=== PATIENT | female | born 2000 | race Caucasian/White ===

== ENCOUNTER 2023-03-25 12:05 | Emergency (ER) | payer OTHER, SELFPAY ==
[2023-03-25 12:06] VITALS: BP 133/79; PULSE 88; RESP 18; TEMP 36.4; O2SAT 100; BMI 30.4
--- NOTE | 2023-03-25 12:23 | US_ITS ---
STUDY: FIRST TRIMESTER OBSTETRICAL ULTRASOUND REASON FOR EXAM: Female, 22 years old Bleeding with approximately 8 weeks LMP: Unknown. TECHNIQUE: Transvaginal TECHNICAL QUALITY: Adequate. PRIOR ULTRASOUND: None. FINDINGS: There is visualization of a single gestational sac in a normal intrauterine position. The mean sac diameter (MSD) measures 3.29 cm, indicating an estimated gestational age (EGA) of 8 weeks, 3 days. The gestational sac shape is within normal limits. There is a visualized yolk sac. The yolk sac measures 3.8 mm. The placenta is non-visualized. There is visualization of a live embryo. The crown-rump length (CRL) measures 1.81 cm, indicating an estimated gestational age (EGA) of 8 weeks, 1 days. There is demonstrated cardiac activity with a heart rate of 154 bpm. The estimated gestation age (EGA) by US is 8 weeks, 2 days. The estimated date of delivery (CRIS) by US is November 02, 2023. The uterus measures 9.3 x 7.6 x 6.2 cm. A tiny subchorionic hemorrhage is present in the mid uterine region measuring 4.1 mm see image #61/90 series #1. There is no demonstrated uterine fibroid. The cervix is closed. The right ovary measures 2.9 x 2.4 x 2.0 cm. There is no right ovarian cyst. There is no visualized right adnexal mass or complex lesion. The left ovary measures 2.2 x 1.6 x 1.8 cm. There is no left ovarian cyst. There is no visualized left adnexal mass or complex lesion. There is no fluid in the cul de sac. US/Transvaginal w/Preg US IMPRESSION: 1. Single IUP at 8 weeks and 2 days. 2. A tiny subchorionic hemorrhage is present in the mid uterine region measuring 4.1 mm see image #61/90 series #1. Electronically Signed: Tomas Patino MD at 14:57 EST ,
--- NOTE | 2023-03-25 12:24 | ED.VIS.FEGU ---
HPI HPI - Female History of Present Illness Chief Complaint: Vag Bld, Preg Informant: patient Narrative Narrative: Patient presents with some vaginal bleeding and cramping. Patient's last menstrual cycle was January 27. She is estimated about 8 weeks . She is G1, P0. She started some slight bleeding last night. It was initially bright red and now it is a little bit darker. It is much less than her normal menstrual cycle. She has some mild cramping more on the left side. None in the back. No urinary symptoms. She is eating drinking moving bowels normally. Only prior abdominal surgeries appendectomy years ago. She contacted her OB who referred her in here. PFSH PFSH Allergy/AdvReac Type Severity Reaction Status Date / Time No Known Allergies Allergy Verified 03/25/23 12:06 Social History Smoking Status: Never smoker ROS ROS ED Constitutional Constitutional ED: Denies chills or fever(s) Cardiovascular Cardiovascular: Denies chest pain, palpitations or racing heartbeat Respiratory/Chest Respiratory/Chest: Denies cough or dyspnea Gastrointestinal Gastrointestinal: Denies diarrhea, melena, nausea or vomiting Genitourinary Genitourinary ED: Reports other Details: See history of present illness. ; Denies dysuria Musculoskeletal Musculoskeletal: Denies myalgias Integumentary Denies rash Hematologic/Lymphatic Hematologic/Lymphatic: Denies easy bleeding or easy bruising Allergic/Immunologic Allergic/Immunologic ED: Denies urticaria EXAM Physical Exam Narrative Exam Narrative: CONSTITUTIONAL: Patient is nontoxic in appearance. The patient looks comfortable. HEENT: No notable trauma. Mucous membranes moist. EYES: No pallor. CARDIOVASCULAR: Regular rate. Regular rhythm. No notable murmur. No JVD. Not tachycardic. RESPIRATORY: No respiratory distress. Breathing is unlabored. No wheezes. GASTROINTESTINAL: Not distended. Bowel sounds are normal. No tenderness. No guarding. No rebound. No palpable mass. Overall benign abdomen. GENITOURINARY: No tenderness over the bladder. No CVA tenderness. When I press in the left lower quadrant/pelvis area she states that is where it is cramping. But pressing does not seem to cause any notable discomfort. MUSCULOSKELETAL: Atraumatic. No peripheral edema. No cord. No tenderness along the deep venous system. No asymmetry. NEUROLOGICAL: Patient is alert and appropriate. No focal deficit noted. SKIN: No noted rashes. No diaphoresis. No pallor. PSYCHIATRIC: Patient is calm. Mood is appropriate. Const Vital Signs: 03/25/23 12:06 Temperature 97.5 F L Temperature Source Temporal Pulse Rate 88 Respiratory Rate 18 Blood Pressure 133/79 H Blood Pressure Mean 97 Pulse Ox 100 Oxygen Delivery Method Room Air MDM MDM MDM Narrative Medical decision making narrative: Patient CBC is normal. Patient's blood type is a positive and she does not need RhoGAM. Patient's serum quantitative beta-hCG is 55,971. Patient's urinalysis is normal no sign of infection. Patient's transvaginal ultrasound shows single live IUP at 8 weeks 2 days with a small subchorionic bleed of 4.1 mm. I think patient is appropriate to go home. She will follow-up with her [employer] physician. I explained that the bleeding is not a reassuring sign in early but with a small subchorionic bleed it is still possible to carry on a normal . If she has worsening bleeding, pains, lightheadedness or other concerns she should return. Lab Data Attestation: I reviewed the patient's lab results. Labs: Laboratory Results - last 24 hr 03/25/23 03/25/23 12:40 13:06 WBC 10.2 RBC 4.97 Hgb 14.5 Hct 42.0 MCV 84.5 MCH 29.2 MCHC 34.5 RDW Std Deviation 35.8 RDW Coeff of Tommy 11.8 Plt Count 292 MPV 8.9 Immature Gran % (Auto) 0.300 Neut % (Auto) 75.1 H Lymph % (Auto) 17.4 L [place] % (Auto) 5.6 Eos % (Auto) 1.0 Baso % (Auto) 0.6 Absolute Neuts (auto) 7.7 Absolute Lymphs (auto) 1.77 Nucleated RBC % 0 HCG, Quant 64483 H Serum , Qual Cancelled Urine Color Yellow Urine Clarity Sl. Cloudy Urine pH 6.5 Ur Specific [place] 1.015 Urine Protein 15 H Urine Glucose (UA) Normal Urine Ketones Negative Urine Occult Blood 25 H Urine Nitrite Negative Urine Bilirubin Negative Urine Urobilinogen Normal Ur Leukocyte Esterase Negative Urine RBC 0-5 SEEN Urine WBC 0 SEEN Ur Squamous Epith Cells 0-5 SEEN Urine Bacteria RARE Urine Mucus RARE Blood Type A POSITIVE Radiography Diagnostic Testing: Clinical Impression(s) from Imaging Studies Obstetrics Ultrasound 03/25/23 12:23 IMPRESSION: 1. Single IUP at 8 weeks and 2 days. 2. A tiny subchorionic hemorrhage is present in the mid uterine region measuring 4.1 mm see image #61/90 series #1. Electronically Signed: Tomas Patino MD at 14:57 EST Reading Location ID and State: [facility] / [place] , Service support , Discharge Plan Triage Chief Complaint: Vag Bld, Preg ED Provider: Gilson Collins Dx/Rx/DC Orders Clinical Impression: Vaginal bleeding, First trimester bleeding Instructions: Bleeding During Early Primary Care Provider: Deejay Jain Referrals: Deejay Jain MD [Primary Care Provider] - Luciana Sahu MD [Med Staff - Active Staff] - 2 Days Disposition Disposition: Home, Self Care
[2023-03-25 12:51] LABS: Absolute Lymphocyte Count 1.77 X10^3/uL (0.83-4.51); Absolute Neutrophil Count 7.7 X10^3/uL (2.0-7.7); Basophil# 0.06 X10^3/uL; Basophil% 0.6 % (0-1); Hemoglobin 14.5 g/dL (12.0-15.0); Lymphocyte # 1.77 X10^3/ul (0.83-4.51); Lymphocyte % 17.4 % (19-41); Mean Corp Hgb Conc 34.5 g/dL (32-36); Mean Corpuscular Hgb 29.2 pg (27.0-32.0); Mean Corpuscular Volume 84.5 fL (81-99); Mean Platelet Vol. 8.9 fl (6.2-12.0); Monocyte# 0.57 X10^3/uL; Monocyte% 5.6 % (0-10); NRBC Flagged by Analyzer 0 % (0-5); Neutrophil # 7.65 X10^3/uL (2.7-7.7); Neutrophil % 75.1 % (47-70); Platelet Count 292 K/mm3 (150-450); RBC Distribution Width CV 11.8 % (11.6-14.6); RBC Distribution Width SD 35.8 fl (35.1-43.9); Red Blood Count 4.97 M/mm3 (4.2-5.4); White Blood Count 10.2 K/mm3 (4.4-11.0)
[2023-03-25 13:16] LABS: White Blood Cells 0 SEEN /hpf (0-5)
[2023-03-25 13:27] LABS: Color, Urine Yellow (Yellow); Glucose, Dipstick Normal (Normal); Ketone-Dipstick Negative (Negative); Leukocyte Esterase-Dipstick Negative /ul (Negative); Nitrite-Dipstick Negative (Negative); Occult Blood-Urine 25 /ul (Negative); Protein-Dipstick 15 mg/dl (Negative); Specific Gravity, Urine 1.015 (1.002-1.030); Urine Bilirubin Dipstick Negative (Negative); Urine Clarity Sl. Cloudy (Clear); Urine Urobilinogen Normal (Normal); Urine pH 6.5 (5.0 - 8.0)
[2023-03-25 13:37] LABS: Bacteria RARE /hpf (None Seen); Mucous, Urine RARE /hpf (<or=2+); Red Blood Cells-Urine 0-5 SEEN /hpf (0-5); Squamous Epithelial Cells - UA 0-5 SEEN /hpf (5-10)
[2023-03-25 13:39] LABS: hCG Titer Quant., Serum 55971 mIU/mL (1-3)
[2023-03-25 15:33] VITALS: BP 126/85; PULSE 80; RESP 16; O2SAT 98
== END 2023-03-25 15:41 | disposition home or self-care (01) ==
PROVIDERS: Emergency Provider Emergency Medicine; PCP Family Medicine; Visit Provider Emergency Medicine
DX: O20.8 Other hemorrhage in early pregnancy (principal); R10.2 Pelvic and perineal pain; Z3A.08 8 weeks gestation of pregnancy; O99.891 Other specified diseases and conditions complicating pregnancy
CPT/HCPCS: 76817; 81001; 84702; 85025; 86900; 86901; 99283; A4216

== ENCOUNTER → 2023-04-02 | Outpatient (CLI) | payer OTHER, SELFPAY ==
--- OUTSIDE RECORDS SUMMARY | 2023-04-02 18:22 | XMS RPT_ITS | CCD ---
Author Name Unknown Address [address] [place] [address] Organization [facility] Care Team Providers Care Director Of Product Marketing Name Role Phone Maria Luz Ledezma Unavailable Unavailable Unavailable Maria Luz Ledezma Unavailable Iban [place] Unavailable Jerman Gaby L Unavailable [facility] Unavailable Arjun Ji Unavailable Marky Copeland Unavailable [facility] Provide r [facility] Provide r OSCAR KOENIG Referring Unavailable OSCAR KOENIG Attending Unavailable [facility] Unavaila Armin Meier Unavailable Unavailable Razo, Lucy Attending Unavailable Razo, Lucy Referring Unavailable [facility] Unavailable [facility] Unavailable Rockwall, Dr. New Hardin Attending Unavailabl e Rockwall, Dr. [place] Referring Unavailabl e [facility] Unavailable [place]wall, Dr. [place] Attending Unavailabl e Waldo, Dr. [place] Referring UnavailMD SAIRA Lara Attending MD SAIRA Mtz Referring Unava ilable [facility] Unavailable Kamenik, Ms. Armin Su Attending Chelitavai jose [facility] Unav Siara Fernando MD Primary Care Provider SAIRA HERNANDEZ Primary Care Unavaila ble GARCIA, JAGPRIT PRUITT Attending SAIRA Colón Primary Care Unavaila WENDY Peter Admitting WENDY Rossi Referring Unavailable SAIRA HERNANDEZ Primary Care Unavaila WENDY Peter Attending Unavailable SAIRA HERNANDEZ Primary Care Unavaila WENDY Peter Attending Unavailable GABY BARKLEY Primary Care Unavaila LAURA Talavera Attending Unavailable Medications Current Medications Medication Drug Class(es) Dates Sig (Normalized) Sig (Original) azithromycin 250 mg oral tablet (1 source) Macrolide Antimicrobial Start: 03-31-2022 take 2 tablets by mouth once, then take 1 tablet by mouth once daily azithromycin 250 mg oral tablet ; Take 2 tabs (500mg) x 1 days, then 1 tab (250mg) once daily x 4 days Quantity: 6 Refills: 0 Ordered: 31-Mar-2022 Armin Morales Start: 31-Mar-2022 Generic Substitution Allowed Comments: Do not take dairy products, antacids, or iron preparations within one hour of this medication.Finish all this medication unless otherwise directed by prescriber. Completed/Discontinued Medications Medication Drug Class(es) Dates Sig (Normalized) Sig (Original) 12 hr buPROPion hydrochloride 150 mg extended release oral tablet (2 sources) Aminoketone Start: 10-20-2021 take 1 tablet by mouth twice daily buPROPion HCl ER (SR) 150 MG Oral Tablet Extended Release 12 Hour TAKE 1 TABLET TWICE DAILY. Quantity: 60 Refills: 2 Ordered: 20-Oct-2021 Saira Hernandez MD Start : 20-Oct-2021 Active hydrocortisone acetate 25 mg rectal suppository (5 sources) Corticosteroid Start: 04-07-2021 Anusol-HC 25 MG Rectal Suppository INSERT 1 SUPPOSITORY RECTALLY 2 TIMES DAILY. Quantity: 14 Refills: 0 Ordered: 07-Apr-2021 Gaby Mancia Start : 07-Apr-2021 Active hydrocortisone acetate 10 mg/ml / pramoxine hydrochloride 10 mg/ml rectal foam (3 sources) Corticosteroid Start: 06-11-2021 Proctofoam HC 1-1 % External Foam APPLY RECTALLY ONCE DAILY AT BEDTIME Quantity: 10 Refills: 2 Ordered: 11-Jun-2021 Osmany Penny DO Start : 11-Jun-2021 Active Problems Active Problems Problem Classification Problem Date Documented Date Episodic/Chronic Abdominal pain (2 sources) Indigestion; Translations: [Dyspepsia and other specified disorders of function of stomach] Episodic Anal and rectal conditions (6 sources) Disorder of rectum; Translations: [Anal fissure] Episodic Anxiety disorders (3 sources) Anxiety; Translations: [Anxiety state, unspecified] Onset: 11-18-2022 11-18-2022 Chronic Cardiac dysrhythmias (2 sources) Cardiac arrhythmia; Translations: [Cardiac dysrhythmia, unspecified] Onset: 05-26-2021 05-26-2021 Chronic Contraceptive and procreative management (1 source) Subcutaneous contraceptive implant present; Translations: [Presence of subdermal contraceptive implant] Episodic Past or Other Problems Problem Classification Problem Date Documented Da te Episodic/Chronic Malaise and fatigue (1 source) Other malaise; Translations: [Other malaise] Onset: 03-31-2022 Episodic Other upper respiratory infections (1 source) Acute upper respiratory infection, unspecified; Translations: [Acute upper respiratory infection, unspecified] Onset: 03-31-2022 Episodic Unclassified (11 sources) Finding of menstrual bleeding; Translations: [Menstruation] Results Test Name Value Interpretation Reference Range Facil ity Vital Signs Date Time Vital Sign Value Performing Clinician Facility 11-04-2022 09:24-0400 Body height 167.6 cm Wendy Lao ENGINEER TECHNICIAN Work Phone: [facility] 11-04-2022 09:24-0400 Body mass index (BMI) [Ratio] 27.44 kg/m2 Wendy Lao ENGINEER TECHNICIAN Work Phone: [facility] 11-04-2022 09:24-0400 Body weight 77.11 kg Wendy Lao ENGINEER TECHNICIAN Work Phone: [facility] 03-31-2022 15:23-0500 Body height 168 cm Gaby Barkley Other Phone: [facility] 03-31-2022 15:23-0500 Body temperature 97.7 [degF] Gaby Barkley Other Phone: [facility] 03-31-2022 15:23-0500 Diastolic blood pressure 76 mm[Hg] Gaby Barkley Other Phone: [facility] 03-31-2022 15:23-0500 Heart rate 93 /min Gaby Barkley Other Phone: [facility] 03-31-2022 15:23-0500 Respiratory rate 16 /min Gaby Barkley Other Phone: [facility] 03-31-2022 15:23-0500 SaO2% (BldA) [Mass fraction] 97 % Gaby Barkley Other Phone: [facility] 03-31-2022 15:23-0500 Systolic blood pressure 106 mm[Hg] Gaby Barkley Other Phone: [facility] 10-20-2021 10:16-0400 Body height 167.64 cm Gaby Barkley Work Phone: [facility] Work Phone: 10-20-2021 10:16-0400 Body mass index (BMI) [Ratio] 27.96 kg/m2 Gaby Dhillon [employer] Work Phone: [facility] Work Phone: 10-20-2021 10:16-0400 Body surface area Derived from formula 1.88 m2 Gaby Barkley Work Phone: [facility] Work Phone: 10-20-2021 10:16-0400 Body weight 78.59 kg Gaby Barkley Work Phone: [facility] Work Phone: 10-20-2021 10:16-0400 Diastolic blood pressure 80 mm[Hg] Gaby Dhillon [employer] Work Phone: [facility] Work Phone: 10-20-2021 10:16-0400 Heart rate 104 /min Gaby Dhillon [employer] Work Phone: [facility] Work Phone: 10-20-2021 10:16-0400 SaO2% (BldA) [Mass fraction] 98 % Gaby Barkley Work Phone: [facility] Work Phone: 10-20-2021 10:16-0400 Systolic blood pressure 110 mm[Hg] Gaby Barkley Work Phone: [facility] Work Phone: 10-06-2021 10:56-0400 Body height 167.64 cm Gaby Dhillon [employer] Work Phone: [employer] Work Phone: 10-06-2021 10:56-0400 Body mass index (BMI) [Ratio] 27.76 kg/m2 Gaby Barkley Work Phone: [facility] Work Phone: 10-06-2021 10:56-0400 Body surface area Derived from formula 1.88 m2 Gaby Barkley Work Phone: [facility] Work Phone: 10-06-2021 10:56-0400 Body weight 78.02 kg Gaby Barkley Work Phone: [facility] Work Phone: 10-06-2021 10:56-0400 Diastolic blood pressure 70 mm[Hg] Gaby Dhillon [employer] Work Phone: [facility] Work Phone: 10-06-2021 10:56-0400 Systolic blood pressure 110 mm[Hg] Gaby Dhillon [employer] Work Phone: [facility] Work Phone: 06-24-2021 14:23-0400 Body height 167.6 cm Oscar Koenig MD Work Phone: [facility] 06-24-2021 14:23-0400 Body mass index (BMI) [Ratio] 27.44 kg/m2 Oscar Koenig MD Work Phone: [facility] 06-24-2021 14:23-0400 Body weight 77.11 kg Oscar Koenig MD Work Phone: [facility] 06-24-2021 14:23-0400 Diastolic blood pressure 61 mm[Hg] Oscar Koenig MD Work Phone: [facility] 06-24-2021 14:23-0400 Heart rate 84 /min Oscar Koenig MD Work Phone: [facility] 06-24-2021 14:23-0400 SaO2% (BldA) [Mass fraction] 96 % Oscar Koenig MD Work Phone: [facility] 06-24-2021 14:23-0400 Systolic blood pressure 119 mm[Hg] Oscar Koenig MD Work Phone: [facility] 06-09-2021 09:18-0400 Body height 167.64 cm Gaby Barkley Work Phone: [facility] Work Phone: 06-09-2021 09:18-0400 Body mass index (BMI) [Ratio] 27.44 kg/m2 Gaby Barkley Work Phone: [facility] Work Phone: 06-09-2021 09:18-0400 Body surface area Derived from formula 1.87 m2 Gaby Barkley Work Phone: [facility] Work Phone: 06-09-2021 09:18-0400 Body weight 77.11 kg Gaby Barkley Work Phone: [facility] Work Phone: 06-09-2021 09:18-0400 Diastolic blood pressure 70 mm[Hg] Gaby Dhillon [employer] Work Phone: [facility] Work Phone: 06-09-2021 09:18-0400 Systolic blood pressure 110 mm[Hg] Gaby Dhillon Wood Work Phone: [facility] Work Phone: 05-26-2021 15:43-0400 Diastolic blood pressure 72 mm[Hg] Gaby Wood Other Phone: [facility] 05-26-2021 15:43-0400 Heart rate 76 /min Gaby Wood Other Phone: [facility] 05-26-2021 15:43-0400 Respiratory rate 15 /min Gaby Wood Other Phone: [facility] 05-26-2021 15:43-0400 SaO2% (BldA) [Mass fraction] 98 % Gaby Wood Other Phone: [facility] 05-26-2021 15:43-0400 Systolic blood pressure 114 mm[Hg] Gaby Wood Other Phone: [facility] 05-26-2021 13:00-0400 Body temperature 98.6 [degF] Gaby Wood Other Phone: [facility] 05-26-2021 08:51-0400 Body height 167.5 cm Gaby Wood Other Phone: [facility] 05-26-2021 08:51-0400 Body weight 72.7 kg Gaby Wood Other Phone: [facility] 04-07-2021 08:18-0500 Body height 167.64 cm Gaby Jacquie Wood Work Phone: [facility] Work Phone: 04-07-2021 08:18-0500 Body mass index (BMI) [Ratio] 27.44 kg/m2 Gaby L Wood Work Phone: [facility] Work Phone: 04-07-2021 08:18-0500 Body surface area Derived from formula 1.87 m2 Gaby Barkley Work Phone: [facility] Work Phone: 04-07-2021 08:18-0500 Body temperature 96.9 [degF] Gaby Barkley Work Phone: [facility] Work Phone: 04-07-2021 08:18-0500 Body weight 77.11 kg Gaby Barkley Work Phone: [facility] Work Phone: 04-07-2021 08:18-0500 Diastolic blood pressure 66 mm[Hg] Gaby Barkley Work Phone: [facility] Work Phone: 04-07-2021 08:18-0500 Heart rate 86 /min Gaby Barkley Work Phone: [facility] Work Phone: 04-07-2021 08:18-0500 SaO2% (BldA) [Mass fraction] 97 % Gaby Barkley Work Phone: [facility] Work Phone: 04-07-2021 08:18-0500 Systolic blood pressure 110 mm[Hg] Gaby Barkley Work Phone: [facility] Work Phone: 12-01-2020 06:44-0400 Body height 167.6 cm Maria Luz Brisa Other Phone: [facility] 12-01-2020 06:44-0400 Body temperature 97.16 [degF] Maria Luz Perryrdle Other Phone: [facility] 12-01-2020 06:44-0400 Body weight 74 kg Maria Luzgogo Perryrdle Other Phone: [facility] 12-01-2020 06:44-0400 Diastolic blood pressure 95 mm[Hg] Maria Luz Brisa Other Phone: [facility] 12-01-2020 06:44-0400 Heart rate 70 /min Maria Luz Brisa Other Phone: [facility] 12-01-2020 06:44-0400 Respiratory rate 16 /min Maria Luz Brisa Other Phone: [facility] 12-01-2020 06:44-0400 SaO2% (BldA) [Mass fraction] 98 % Maria Luz Brisa Other Phone: [facility] 12-01-2020 06:44-0400 Systolic blood pressure 140 mm[Hg] Maria Luz Brisa Other Phone: [facility] 09-03-2020 13:30-0400 Body height 167.64 cm Maria Luz L Brisa Work Phone: [facility] [employer] Work Phone: 09-03-2020 13:30-0400 Body mass index (BMI) [Ratio] 24.41 kg/m2 Maria Luz L Brisa Work Phone: [employer] Work Phone: 09-03-2020 13:30-0400 Body surface area Derived from formula 1.78 m2 Maria Luz L Brisa Work Phone: [employer] Work Phone: 09-03-2020 13:30-0400 Body temperature 98 [degF] Maria Luz L Brisa Work Phone: [employer] Work Phone: 09-03-2020 13:30-0400 Body weight 68.6 kg Maria Luz L Brisa Work Phone: [employer] Work Phone: 09-03-2020 13:30-0400 Diastolic blood pressure 62 mm[Hg] Maria Luz Ledezma Work Phone: [employer] Work Phone: 09-03-2020 13:30-0400 Systolic blood pressure 110 mm[Hg] Maria Luz Ledezma Work Phone: [place] [address] [employer] Work Phone: Encounters Encounter Date Encounter Type Care Provider Facility Start: 11-17-2022 End: 11-17-2022 ambulatory [facility] Start: 11-17-2022 End: 11-17-2022 Office outpatient visit 10 minutes Wendy Lao CNP Work Phone: [facility] Procedures Date Procedure Procedure Detail Performing Clinician Start: 06-24-2021 Ecg routine ecg w/le ast 12 lds w/i&r Oscar Koenig MD Work Phone: Start: 05-26-2021 Echocardiography Jd ia Jacquie Barkley Work Phone: Appendectomy Gaby Jacquie Barkley Work Phone: Nexplanon insertion Maria Luz Ledezma Work Phone: Plan of Treatment Date Care Activity Detail Author Start: 11-17-2022 End: 11-17-2022 Patient encounter procedure 11/17/2022 2:00 PM EDT Office Visit [facility] [address] [place] [address] Wendy Lao CNP [address] [place] [address] [facility] Start: 10-23-2022 Influenza vaccination Sequenti al Influenza Vaccine (#1) [facility] Start: 11-26-2021 End: 11-26-2021 Patient encounter procedure 11/26/2021 Office Visit Cardiology Oscar Koenig MD [address] [place] [id number] [facility] Start: 11-18-2021 EPV, Provider: Saira Hernandez, Status: Pen, Time: 2:40 PM EPV, Provider: Saira Hernandez, Status: Pen, Time: 2:40 PM [facility] Work Phone: Start: 10-20-2021 EPV, Provider: Saira Hernandez, Status: Pen, Time: 10:20 AM EPV, Provider: Saira Hernandez, Status: Pen, Time: 10:[address] Work Phone: Start: 09-03-2021 History and physical examination, annual for health maintenance Wellness Visit [facility] Start: 08-26-2021 COVID-19 Vaccine (3 - Booster for Pfizer series) COVID-19 Vaccine (3 - Booster for Pfizer series) [facility] Start: 08-01-2021 End: 08-01-2021 Patient encounter procedure 08/01/2021 Appointment Radiology Oscar Koenig MD [address] [place] [id number] [facility] Start: 07-30-2021 Tetanus vaccination Tetanus: Every 1 0yrs [facility] Start: 06-12-2021 NPV, Provider: Garcia El, Status: Pen, Time: 11:15 AM NPV, Provider: Garcia El, Status: Pen, Time: 11:15 AM [facility] [address] Work Phone: Start: 06-09-2021 NPV, Provider: Osmany Penny, Status: Pen, Time: 9:00 AM NPV, Provider: Osmany Penny, Status: Pen, Time: 9:00 AM [facility] Work Phone: Start: 06-09-2021 Patient encounter procedure [facility] Start: 05-26-2021 End: 05-27-2022 [facility] Immunizations Immunization Date Immunization Notes Care Provider Fa cility 03-29-2021 Pfizer-BioNTech COVID-19 Vacc 30 MCG/0.3ML Intramuscular Suspension Gaby Barkley Work Phone: [facility] Work Phone: Payers Date Payer Category Payer Unknown 2022 Unknown [id number] 2021 Worker's Compensation [id number] 2021 Worker's Compensation 22.128 [id number] 2021 Worker's Compensation [id number] 2019 Unknown [id number] 1999 Unknown [id number] 2.16. [id number] 1999 Unknown [id number] 2.16. [id number] 1999 Unknown [id number] 2.16. [id number] 1999 Unknown [id number] 2.16. [id number] 1999 Unknown [id number] 2.16. [id number] 1999 Unknown [id number] 2.16.8 [id number] 1999 Unknown [id number] 2.16. [id number] 1999 Unknown [id number] 2.16. [id number] 1999 Unknown [id number] 2.16. [id number] 1999 Unknown [id number] 2.16. [id number] 1999 Unknown [id number] 2.16. [id number] Unknown [id number] Social History Date Type Detail Facility Start: 06-24-2021 End: 11-17-2022 Non-smoker Non-smoker [facility] [address] [employer] Work Phone: Tobacco smoking consumption unknown [facility] Start: 06-24-2021 Tobacco smoking status NHIS Never smoked tobacco [facility] Start: 06-24-2021 Tobacco use and exposure Smokeless tobacco non-user [facility] Start: 06-24-2021 End: 11-18-2022 Alcohol intake Current drinker of alcohol (finding) [facility] Start: 2000 Sex Assigned At Not on file [facility] Start: 06-14-2021 End: 06-24-2021 Exposure to SARS-CoV-2 (event) Not sure [facility] Start: 08-01-2021 End: 11-17-2022 Tobacco use panel [facility] Start: 11-16-2022 Gender identity Identifies as female gender (finding) [facility] Start: 11-16-2022 Sexual orientation Heterosexual (finding) [facility] Functional Status Date Assessment Result Facility Functional observable [facility] Mental Status Date Assessment Result Facility 05-26-2021 Cognitive functions 27-May-19 2212:30 [facility] Clinical Notes 10-20-2020 to 11-18-2022 Wendy Lao CNP - 11/18/2022 4:45 PM Wendy Brower CNP - 11/04/2022 9:30 AM Carlos Izaguirre RN - 07/31/2021 4:27 PM Carlos Izaguirre RN - 07/29/2021 2:56 PM EDT Note Date & Type Note Facility 11-18-2022 History of Present illness Narrative [facility] [address] [facility] [address] [facility] [id number] Chief Complaint Patient presents with Right Knee - Follow-up Juancarlos Patino returns to the office today for follow-up on the right knee. I saw her about 2 weeks ago after she sustained an injury while playing [employer]. I did place her in a hinged range of motion knee brace and had her continue with OTC pain medications as needed. Today she is here without having to use the brace for ambulation. She states that she wore it for about a week and had also started some home physical therapy exercises which she states have helped significantly. She reports her swelling has resolved. She is able to ambulate without any type of assistance, normal gait pattern. She is not having to take any type of OTC pain medications. She also denies any instability of the knee. She even tried to go out and jog/run to see if this was something she was able to do prior to returning to work. She states that she had no problems with the run. The patient's past medical history, surgical history, social history, family history, medications and allergies were reviewed with the patient today and are available in the chart for further review. No Known Allergies Current Outpatient Medications: etonogestreL (NEXPLANON) 68 mg Impl subdermal implant, Inject under the skin once ., Disp: , Rfl: History reviewed. No pertinent past medical history. Past Surgical History: Procedure Laterality Date APPENDECTOMY 2012 TONSILLECTOMY 2019 Social History Socioeconomic History Marital status: Single Tobacco Use Smoking status: Never Smokeless tobacco: Never Vaping Use Vaping Use: Every day Substances: Nicotine Devices: Disposable Substance and Sexual Activity Alcohol use: Yes Alcohol/week: 2.0 standard drinks of alcohol Types: 2 Standard drinks or equivalent per week Drug use: Never ROS: Review of Systems Musculoskeletal: Negative. ORTHO: Right Knee Exam Right knee exam is normal. Imaging: No new imaging, reviewed from prior visit. Assessment/Plan: After exam we discussed continued treatment options for the knee. At this point time she is able to return to work without any restrictions. She can continue OTC pain medications as needed. I am more than happy to see this evelia young lady back as needed. documented in this encounter [facility] 11-04-2022 History of Present illness Narrative Juancarlos Patino 2000 CC: 22 y.o. is a she with right knee pain. HPI: Knee Pain: Patient presents to the office today with complaints of right knee pain. She states that a couple of days ago she was playing [employer], there was some uneven surface and she twisted her knee. She does report hearing an audible pop in the knee. She does report swelling in that right knee after the initial injury. She states that the swelling has improved somewhat. She did go to the emergency room, imaging was performed and they placed her in an immobilizer, instructed her to follow-up with orthopedics. She has been using OTC pain medications as needed. She has been trying to walk around without the immobilizer. She states that any pain she has is when she tries to do any type of twisting or rotation of the knee. She denies any instability of the knee with ambulation. PMH: No Known Allergies Current Outpatient Medications: etonogestreL (NEXPLANON) 68 mg Impl subdermal implant, Inject under the skin once ., Disp: , Rfl: ketorolac (TORADOL) 10 mg tablet, Take 1 (one) tablet (10 mg total) by mouth every 6 (six) hours as needed ., Disp: 20 tablet, Rfl: 0 No past medical history on file. Past Surgical History: Procedure Laterality Date APPENDECTOMY 2012 TONSILLECTOMY 2019 Social History Socioeconomic History Marital status: Single Tobacco Use Smoking status: Never Smokeless tobacco: Never Vaping Use Vaping Use: Every day Substances: Nicotine Devices: Disposable Substance and Sexual Activity Alcohol use: Yes Alcohol/week: 2.0 standard drinks of alcohol Types: 2 Standard drinks or equivalent per week Drug use: Never The patient's past medical history, surgical history, social history, family history, medications and allergies were reviewed with the patient today and are available in the chart for further review. ROS: Review of Systems Constitutional: Negative for activity change and fatigue. HENT: Negative for congestion, hearing loss and trouble swallowing. Eyes: Negative for visual disturbance. Respiratory: Negative for chest tightness and shortness of breath. Cardiovascular: Negative for chest pain and palpitations. Gastrointestinal: Negative for abdominal pain, diarrhea, nausea and vomiting. Endocrine: Negative for polydipsia, polyphagia and polyuria. Genitourinary: Negative for decreased urine volume, difficulty urinating and hematuria. Musculoskeletal: Positive for arthralgias, gait problem, joint swelling and myalgias. Skin: Negative for color change, rash and wound. Allergic/Immunologic: Negative for immunocompromised state. Neurological: Negative for dizziness, weakness, light-headedness and numbness. Hematological: Does not bruise/bleed easily. Psychiatric/Behavioral: Negative for confusion and sleep disturbance. The patient is not nervous/anxious. PE: Physical Exam Constitutional: Appearance: She is well-developed. HENT: Head: Normocephalic. Eyes: Pupils: Pupils are equal, round, and reactive to light. Cardiovascular: Rate and Rhythm: Normal rate and regular rhythm. Pulmonary: Effort: Pulmonary effort is normal. Breath sounds: Normal breath sounds. Abdominal: General: Bowel sounds are normal. Palpations: Abdomen is soft. Musculoskeletal: General: Swelling and tenderness present. Normal range of motion. Cervical back: Normal range of motion and neck supple. Right knee: Effusion present. Instability Tests: Medial Arie test positive. Lateral Arie test negative. Skin: General: Skin is warm and dry. Neurological: Mental Status: She is alert and oriented to person, place, and time. ORTHO: Right Knee Exam Tenderness The patient is experiencing tenderness in the MCL. Range of Motion Extension: -5 Flexion: 130 Tests Arie: Medial - positive Lateral - negative Varus: negative Valgus: positive Christal: Anterior - negative Drawer: Anterior - negative Posterior - negative Other Erythema: present Scars: absent Sensation: normal Pulse: present Swelling: mild Effusion: effusion present Imaging: Right knee: No acute fracture or dislocation. No osseous abnormality. Assessment/Plan: After examination and reviewing of the patient x-ray images we discussed treatment options for the right knee. She is getting in a month and really does not want to have to take a lot of time off of work. At this point in time we are going to place her in a different type of knee brace, hinged range of motion knee brace for additional support for the knee. She is to continue with OTC pain medications as needed. I want to see her back in 2 weeks for reevaluation. We did discuss the possibility of needing a MRI if there is no improvement in the next couple of weeks. Diagnosis: Problem List Items Addressed This Visit None Follow Up: No follow-ups on file. Wendy Lao CNP documented in this encounter [facility] 08-15-2022 Note Diagnoses/Problems Assessed control counseling (V25.09) (Z30.09) Provider Impressions 1) control counseling-reviewed all forms of control including short acting long-acting permanent. Patient like her Nexplanon replaced. Paperwork signed for insurance today. Plan remove and replace the next visit Chief Complaint PT IS HERE TODAY TO DISCUSS GETTING ANOTHER NEXPLANON. STATES HER NEXPLANON IS DUE TO COME OUT. HAS NO CONCERNS. LMP: 09/28/2021 History of Present [id number] presents for Nexplanon being overdue. Patient wanted removed today but not when discussing control she would like another one. Patient is no acute concerns Review of Systems Constitutional: No fevers, chills Eye:no vision changes Respiratory: no SOB Cardiovascular: no chest pain Breast: No lump/mass or discharge Gastrointestinal: No nausea, vomiting, diarrhea, constipation, abdominal pain Genitourinary:no dysuria Gynecology: See HPI Endocrine: No heat or cold intolerance Musculoskeletal: No decreased ROM Skin:No rash Neurologic: No numbness tingling Psychiatric: No anxiety, depression All other: all other systems reviewed and negative for complaint Active Problems Problems Breakthrough bleeding on Nexplanon (626.6,V45.59) (N92.1,Z97.5) Encounter for Papanicolaou smear of cervix (V76.2) (Z12.4) Other constipation (564.09) (K59.09) Ovarian cyst, complex (620.2) (N83.299) PRB (rectal bleeding) (569.3) (K62.5) Rectal fissure (565.0) (K60.2) Screening for breast cancer (V76.10) (Z12.39) Screening for STDs (sexually transmitted diseases) (V74.5) (Z11.3) Women's annual routine gynecological examination (V72.31) (Z01.419) Past Medical History Problems History of concussion (V15.52) (Z87.820) History of Menstruation Onset age 11 years History of Pap test, as part of routine gynecological examination (V76.2) (Z01.419) 09/03/2020; NIL Surgical History Problems History of Appendectomy History of Tonsillectomy Family History Mother Family history of diabetes mellitus (V18.0) (Z83.3) Father No pertinent family history Aunt Family history of malignant neoplasm of ovary (V16.41) (Z80.41) Maternal Social History Problems No alcohol use No illicit drug use Non-smoker (V49.89) (Z78.9) Sexually active Allergies Medication No Known Drug Allergies Recorded By: New Haas; 02/12/2020 2:02:25 PM Current Meds Medication NameInstruction MiraLax 17 GM Oral Packet Nexplanon 68 MG Subcutaneous Implant Vitals Vital Signs Recorded: 06Oct2021 10:56AM [id number] Latsxhqzn20 Height5 ft 6 in Lnedhh114 lb BMI Ctbjwggayg36.76 kg/m2 BSA Calculated1.88 [id number] Physical Exam General: None acute distress Eye: Intraocular movements are intact HEENT: Normocephalic Cardiovascular: Regular rate Respiratory: Respirations are nonlabored Gastrointestinal: Nondistended Musculoskeletal: Normal range of motion Neurologic: Alert and oriented x3 Psychiatric: Cooperative appropriate mood and affect. Signatures Electronically signed by : New Haas DO; Oct 06 2021 11:08AM EST (Author) [facility] 07-31-2021 History of Present illness Narrative Patient is scheduled for a cardiac MRI tomorrow morning (08/01) at 7:30 am to further evaluate a right atrial mass. Trying to determine eustachian valve vs. Myxoma, vs thrombus. Patient is a workers comp claim who was referred to our clinic for cardiac clearance after exposure to a fetanyl overdose while at work. Atrial mass was incidentally found while on ECHO while at [facility] at initial encounter. Issue is, unsure whether bureau of workers comp ([employer]) is going to cover cardiac MRI or not since they are unsure is atrial mass is related to fetanyl exposure or if mass was present prior to fetanyl exposure. Spoke to patient in reference to coverage and unsure whether MRI will be covered or not. Cardiac MRI could range ~$3,000 to $5,000. Patient verbalized understanding. Per patient, she would like to proceed with cardiac MRI testing, and will personally submit all necessary paperwork and bills to [employer] if needed. Will keep MRI as scheduled tomorrow, 08/01/21 at 7:30 AM. documented in this encounter [facility] 07-29-2021 History of Present illness Narrative [facility] C9 form faxed to [facility] [phone] for cardiac MRI scheduled for 08/01 documented in this encounter [facility] 06-24-2021 History of Present illness Narrative Cardiology Clinic Visit Heart & Vascular [facility] 06/24/2021 Oscar Koenig MD [address] [place] [id number] Patient: Juancarlos Patino Date of : 2000 (21 y.o.) Referring Provider: System, Provider Not In PCP: Gaby Barkley, SHAHBAZ Assessment & Plan Juancarlos Patino is a 21 y.o. woman with no significant past medical history who works in the [employer] and presents to clinic for evaluation of a right atrial mass. Right atrial mass -personally reviewed her echocardiogram images from [facility]. There appears to be a right atrial mass on the free wall of the atrium. Does not appear to be a myxoma or thrombus. Another possibility may be artifact. Prominent eustachian valve is a possibility however structure is larger than most typical prominent eustachian valves. We discussed further imaging including a cardiac MRI which she was agreeable to. Her echocardiogram otherwise revealed normal systolic function with no hemodynamically significant valve disease. The patient can return back to work however prior to her MRI. Chest pain - atypical in nature. The patient does have a strong family history of coronary artery disease and is interested in screening for coronary disease. She is interested in the calcium score which we have ordered and she will completed at per her preference. Return in about 4 months (around 10/25/2021). Oscar Koenig MD [facility] Non-Invasive Cardiology [facility] Heart and Vascular Chief Complaint: Establish Care (Cardiac clearance for work/c/o left arm tingling sometimes) Subjective Juancarlos Patino is a 21 y.o. woman with no significant past medical history who works in the [employer] and presents to clinic for evaluation of a right atrial mass. 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 EMS was called to the senior care and the patient was taken to the hospital. In route she was given Narcan. She was initially alert in the ED but soon became unconscious. She was then given another round of Narcan and given Ativan for seizure-like activity. She was admitted to the ICU for observation monitoring. She did undergo an echocardiogram which revealed normal systolic function. However there was a mobile echodensity in the right atrium possibly a prominent eustachian valve versus thrombus versus mass. She was referred to clinic for further evaluation. She reports that since this episode she does have episodes of chest pain which are sharp in nature. These episodes can occur with activity and exertion and she does have some radiation to her left arm. She reports that at times her left arm feels numb or can feel heavy with these episodes. She however can have these episodes while she is just sitting and resting. They last for few minutes at a time. She denies feeling short of breath. She denies lower extremity swelling, PND and orthopnea. She denies palpitations. She denies feeling lightheaded or dizzy. She denies any episodes syncope. She denies any prior cardiac history including CO, PCI, heart failure or valve issues. She denies prior history of DVT or PE. The patient does have a family history of early heart disease. Her maternal grandfather had an CO in his 40s. There were multiple family members who have had MIs in their 40s. Review of Systems: Constitution: Negative. HENT: Negative. Cardiovascular: As above. Respiratory: As above. Endocrine: Negative. Skin: Negative. Musculoskeletal: Negative. Gastrointestinal: Negative. Genitourinary: Negative. Neurological: Negative. Psychiatric/Behavioral: Negative. History reviewed. No pertinent past medical history. Past Surgical History: Procedure Laterality Date APPENDECTOMY 2012 TONSILLECTOMY 2019 Family History Problem Relation Age of Onset Mitral valve prolapse Mother No Known Problems Father Stroke Maternal Grandmother Heart attack Maternal Grandfather Social History Tobacco Use Smoking Status Never Smoker Smokeless Tobacco Never Used Allergies: Patient has no known allergies. HOME Medications: Current Outpatient Medications on File Prior to Visit Medication Sig etonogestreL (NEXPLANON) 68 mg Impl subdermal implant Inject under the skin once . No current facility-administered medications on file prior to visit. Physical Examination: BP 119/61 (BP Location: Right arm) Pulse 84 Ht 5' 6 Wt 77.1 kg (170 lb) SpO2 96% BMI 27.44 kg/m Constitutional: Appears well-developed and well-nourished. No distress. HENT: Head: Normocephalic and atraumatic. Eyes: Conjunctivae and EOM are normal. No scleral icterus. Neck: Normal range of motion. Cardiovascular: Normal rate and regular rhythm. Exam reveals no gallop and no friction rub. No murmur heard. No JVP elevation. No LE edema. Pulmonary/Chest: Effort normal and breath sounds normal. No respiratory distress. No wheezes. No rales. Abdominal: Soft. Bowel sounds are normal. There is no abdominal tenderness. Musculoskeletal: Normal range of motion. Neurological: AOx3, moving all ext. Skin: Skin is warm and dry. No rash noted. Psychiatric: Normal mood and affect. Cardiovascular Studies: 06/24/21 ECG Sinus rhythm RSR' Labs: No results found for: GLUCOSE, CALCIUM, NA, K, CL, BUN, CREATININE No results found for: WBC, HGB, HCT, MCV, EXTMCV, PLT, RBC No results found for: CHOL, LDLCALC, LDLDIRECT, TRIG, HDL documented in this encounter [facility] 06-24-2021 Instructions Farnaz Izaguirre RN - 06/24/2021 2:16 PM EDT How to contact your Care Team: Provider: Oscar Koenig MD Nurse: Farnaz Izaguirre RN In case of an emergency please call 911. REFILLS: When in need for refills please call your care team or the office at [phone]. Please include medication name, pharmacy name, and specify 30-day or 90-day supply. Please check with your pharmacy within 24 hours of request for your refill. You must follow up as directed to continue current refills. Thank you documented in this encounter [facility] 05-26-2021 Hospital Discharge instructions Follow Up Appointment 1:Physician/Dept/Service: Radha Villegas for Referral: Hospital Follow-upCall to Schedule in: 1 weekScheduled Date/Time: 09-Jun-2021 09:00Location: [address], [place] [address] Number: [phone]: Please keep already scheuduled appointment for your follow-up appointment [facility] 11-09-2020 History of Present illness Narrative Juancarlos is a pleasant 21-year-old female was recently hospitalized for accidental fentanyl overdose, she was exposed to fentanyl powder 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 She believes she may have aspirated the chemical and became unresponsive required 7 doses of Narcan hospital stay for recovery.She is seen today because of persistent constipation constipation began several months ago, she had been straining to have a bowel movement would often go 5 to 7 days without a bowel movement. She was recently started on MiraLAX which she is taking every other day which is helping improve her bowel function.Has known history of ovarian cyst she recently was put on oral contraceptives which made her feel more sick and is now on long-acting progesterone control.She admits the bleeding is bright red almost dripping from her rectum after bowel movement and the pain is excruciating to the point where she does not want to move her bowels. She denies any history of anemia. [facility] [address] Work Phone: 10-20-2020 History of Present illness Narrative using some nicotine in vaping, 5% nicotine, has been using for the past year, has tried cold turkey and changing routine, no help, only able to quit for a couple of days, has HAs, having a lot of anxietyno panic, + anxious, hard to sleep at night, worry a lot about things, always been a little anxious and nervouspain in epigastrium, some blood in stool, seen GI, + burping and belching/refluxing, no dysphagiausing ibuprofen 4 a day on average [facility] Work Phone: Evaluation note Musculoskeletal: Mov es extremities without difficultyGastrointestinal: Soft, nontender, nondistended, + BSCardiovascular: S1, S2, regular rate and rhythm, telemetry with sinus rhythmRespiratory/Thorax: Respirations even and unlabored at rest, clear to auscultation anteriorly and posteriorly, on room airHead/Neck: Normocephalic, atraumaticENMT: Mucous membranes moistEyes: EOMI, clear scleraSkin: Warm and dryNeurological: Sleeping, drowsy, oriented t3Bhezndzkzgi: No edema, +2 pedal pulsesConstitutional: Well developed, very drowsy, oriented x3, no acute distress, cooperativePsychological: Drowsy [facility] Sprain of medial collateral ligament of right knee, initial encounter- Primary [facility]* Diagnosis Sprain of medial collateral ligament of right knee, initial encounter- Primary [facility] encounter [facility] of [facility] Pzudcmvbv30-pyuh-ihr G0 presents for annual exam. Patient safe at home denies abuse. Patient sexually activewithout concern. Patient notes she has a Nexplanon would like to discuss that she had some irregular more painful cramps. Patient notes she is happy not having to take pills but likes the consistencyof pills better. Would like to remove and go on patch potentially. Patient believes she got the HPVvaccine. Patient does not do regular breast exams. Patient has no other acute concernsWst. [facility] Work Phone: History of Present illness NarrativeAlexis comes to office as a new patient. Has been having 2-3MO of irreg. painful rectal bleeding during & after BM's. BM's every 2-3D. BM's are described as hard and difficult to pass. + blood onoutside of stool. & w/ wiping. + drips blood following a BM. Wears liners as sometimes blood will soil undergarments. OTC: miralax & Mg tablets, as needed, w/ no improvement. + bloating. + nausea w/ some emesis. + early satiety. No previous bowel surgeries. + appy 10Y ago. + uncertain fxhx p aternal side, maternal is negative for CRC CA/ UC/chron's disease. + prep H- minimal help. + more anxious/stressed lately as has a high stress job. Diet- eats whatever . Will occasionally eats fiberone bars. No sx. No vaginal discharge.[facility] Work Phone: History of Present illness NarrativeAlexis comes to office as a new patient. Has been having 2-3MO of irreg. painful rectal bleeding during & after BM's. BM's every 2-3D. BM's are described as hard and difficult to pass. + blood onoutside of stool. & w/ wiping. + drips blood following a BM. Wears liners as sometimes blood will soil undergarments. OTC: miralax & Mg tablets, as needed, w/ no improvement. + bloating. + nausea w/ some emesis. + early satiety. No previous bowel surgeries. + appy 10Y ago. + uncertain fxhx p aternal side, maternal is negative for CRC CA/ UC/chron's disease. + prep H- minimal help. + more anxious/stressed lately as has a high stress job. Diet- eats whatever . Will occasionally eats fiberone bars. No sx. No vaginal discharge.[facility] Work Phone: History of Present illness NarrativeAlexis comes to office as a new patient. Has been having 2-3MO of irreg. painful rectal bleeding during & after BM's. BM's every 2-3D. BM's are described as hard and difficult to pass. + blood onoutside of stool. & w/ wiping. + drips blood following a BM. Wears liners as sometimes blood will soil undergarments. OTC: miralax & Mg tablets, as needed, w/ no improvement. + bloating. + nausea w/ some emesis. + early satiety. No previous bowel surgeries. + appy 10Y ago. + uncertain fxhx p aternal side, maternal is negative for CRC CA/ UC/chron's disease. + prep H- minimal help. + more anxious/stressed lately as has a high stress job. Diet- eats whatever . Will occasionally eats fiberone bars. No sx. No vaginal discharge.[facility] Work Phone: History of Present illness [id number]-bxdt-uhq presents for Nexplanon being overdue. Patient wanted removed today but not when discussing control she would like another one. Patient is no acute concernsWWork Market Work Phone: History of Present illness NarrativeAlexis is a 22-year-old who comes in requesting a Nexplanon removal. She is ready to conceive. She plans and getting in November. Would like to not be at the time she gets butis wishing the Nexplanon out today [employer] Work Phone: Summary Purpose Family History No Family History Records FoundUnknown Family Member Name Dates Details Family history of diabetes m ellitus: Mother(V18.0, Z83.3) Status:Active No pertinent family history: Father(V49.89, Z78.9) Status:Active Family history of malignant neoplasm of ovary: Aunt(V16.41, Z80.41) Comments:Maternal; Status:Active Unknown Family Member Name Dates Details Family history of diabetes m ellitus: Mother(V18.0, Z83.3) Status:Active No pertinent family history: Father(V49.89, Z78.9) Status:Active Family history of malignant neoplasm of ovary: Aunt(V16.41, Z80.41) Comments:Maternal; Status:Active Unknown Family Member Name Dates Details Family history of diabetes m ellitus: Mother(V18.0, Z83.3) Status:Active No pertinent family history: Father(V49.89, Z78.9) Status:Active Family history of malignant neoplasm of ovary: Aunt(V16.41, Z80.41) Comments:Maternal; Status:Active Unknown Family Member Name Dates Details Family history of diabetes m ellitus: Mother(V18.0, Z83.3) Status:Active No pertinent family history: Father(V49.89, Z78.9) Status:Active Family history of malignant neoplasm of ovary: Aunt(V16.41, Z80.41) Comments:Maternal; Status:Active Unknown Family Member Name Dates Details Family history of diabetes m ellitus: Mother(V18.0, Z83.3) Status:Active No pertinent family history: Father(V49.89, Z78.9) Status:Active Family history of malignant neoplasm of ovary: Aunt(V16.41, Z80.41) Comments:Maternal; Status:Active Unknown Family Member Name Dates Details Family history of diabetes m ellitus: Mother(V18.0, Z83.3) Status:Active No pertinent family history: Father(V49.89, Z78.9) Status:Active Family history of malignant neoplasm of ovary: Aunt(V16.41, Z80.41) Comments:Maternal; Status:Active Unknown Family Member Name Dates Details Family history of diabetes m ellitus: Mother(V18.0, Z83.3) Status:Active No pertinent family history: Father(V49.89, Z78.9) Status:Active Family history of malignant neoplasm of ovary: Aunt(V16.41, Z80.41) Comments:Maternal; Status:Active Unknown Family Member Name Dates Details Family history of diabetes m ellitus: Mother(V18.0, Z83.3) Status:Active No pertinent family history: Father(V49.89, Z78.9) Status:Active Family history of malignant neoplasm of ovary: Aunt(V16.41, Z80.41) Comments:Maternal; Status:Active Unknown Family Member Name Dates Details Family history of malignant neoplasm of ovary: Aunt(V16.41, Z80.41) Comments:Maternal; Status:Active No pertinent family history: Father(V49.89, Z78.9) Status:Active Family history of diabetes m ellitus: Mother(V18.0, Z83.3) Status:Active Unknown Family Member Name Dates Details Family history of diabetes m ellitus: Mother(V18.0, Z83.3) Status:Active No pertinent family history: Father(V49.89, Z78.9) Status:Active Family history of malignant neoplasm of ovary: Aunt(V16.41, Z80.41) Comments:Maternal; Status:Active Unknown Family Member Name Dates Details Family history of diabetes m ellitus: Mother(V18.0, Z83.3) Status:Active No pertinent family history: Father(V49.89, Z78.9) Status:Active Family history of malignant neoplasm of ovary: Aunt(V16.41, Z80.41) Comments:Maternal; Status:Active Advance Directives No Advanced Directives Records FoundDocuments on File Type Date Recorded Patient Sod Farmer Expl anation Advance Directives and Living Will Chief Complaint Patient is here for her yearly exam and pap test. LMP: 08/21/2020. Patient does not do self breast exams and has no concerns at this time. Patient would like to discuss having the Nexplanon removed.NPV RECTAL BLEEDING, BLOATING X 2 MONPV RECTAL BLEEDING, BLOATING X 2 MONPV in office today for constipation. Patient states she has been having issues for several months.Lubna barkley prescribed her MiraLax and suppositories and patient states it has been heliong some butshe is still having bleeding in the toilet and on the tissue when having a BM, abdominal pain, bloating, cramping, nausea, vomiting.NPV RECTAL BLEEDING, BLOATING X 2 MOPT IS HERE TODAY TO DISCUSS GETTING ANOTHER NEXPLANON. STATES HER NEXPLANON IS DUE TO COME OUT. HASNO CONCERNS. LMP: 09/28/2021WANTS TO QUIT VAPING/ ANXPatient here today to get her Nexplanon removed. She is not interested in any form of contraceptionas she is trying to conceive. She has no questions or concerns. LMP: Nexplanon Reason for Referral Specialty Diagnoses / Procedures Referred By Alyssa forrest Referred To Contact Radiology Diagnoses Right atrial mass Procedures MR Cardiac Morphology With And Without Contrast with Velocity Flow Oscar Koenig MD [address] [place] [id number] Referral ID Status Reason Start Date Expiration Date V isits Requested Visits Authorized [id number] New Request 06/24/2021 06/24/2022 1 1 Specialty Diagnoses / Procedures Referred By Contac t Referred To Contact Radiology Diagnoses Familial hyperlipidemia Chest pain, unspecified type Procedures CT CALCIUM SCORE SCREENING Oscar Koenig MD [address] [facility] [place] [address] Referral ID Status Reason Start Date Expiration Date V isits Requested Visits Authorized [id number] New Request 06/24/2021 06/24/2022 1 1 Additional Source Comments INFORMATION SOURCE (unrecogn ized section and content) DATE CREATED AUTHOR AUTHOR'S ORGANIZ ATION 09/15/2019 [facility] DATE CREATED AUTHOR AUTHOR'S ORGANIZ ATION 08/02/2021 [facility] DATE CREATED AUTHOR AUTHOR'S ORGANIZ ATION 06/26/2022 [facility] DATE CREATED AUTHOR AUTHOR'S ORGANIZ ATION 06/26/2022 [employer] DATE CREATED AUTHOR AUTHOR'S ORGANIZ ATION 08/21/[address] [facility] DATE CREATED AUTHOR AUTHOR'S ORGANIZ ATION 11/04/2022 [facility] DATE CREATED AUTHOR AUTHOR'S ORGANIZ ATION 11/25/2022 [facility] <item><item><item> Privacy Markings (unrecogniz ed section and content) Section Author: Gladys Bailon PROHIBITION ON REDISCLOSURE OF CONFIDENTIAL INFORMATION This notice accompanies a disclosure of information concerning a client made to you with the consent of such client. Section Author: Gladys Bailon PROHIBITION ON REDISCLOSURE OF CONFIDENTIAL INFORMATION This notice accompanies a disclosure of information concerning a client made to you with the consent of such client. Section Author: Gladys Bailon PROHIBITION ON REDISCLOSURE OF CONFIDENTIAL INFORMATION This notice accompanies a disclosure of information concerning a client made to you with the consent of such client. Reason for Visit (unrecogniz ed section and content) Specialty Diagnoses / Procedures Referred By Alyssa forrest Referred To Contact Cardiology Diagnoses Accidental fentanyl poisoning, initial encounter ([facility]) System, Provider Not In [facility] [address] [place] [address] Referral ID Status Reason Start Date Expiration Date V isits Requested Visits Authorized [id number] Pending Review 06/17/2021 06/17/2022 1 1 Reason Comments Pain Reason Comments Follow-up Care Teams (unrecognized sec tion and content) Director Of Product Marketing Relationship Specialty Start Date End Date Gaby Barkley, SHAHBAZ [address] [place] [address] PCP - General Nurse Practitioner 06/24/21 Director Of Product Marketing Relationship Specialty Start Date End Date Saira Hernandez MD [address] [place] [address] PCP - General Family Medicine 10/29/22 Director Of Product Marketing Relationship Specialty Start Date End Date Saira Hernandez MD [address] [place] [id number] PCP - General Family Medicine 10/29/22 FOR RECORDS PERTAINING TO PATIENTS WHO ARE OR HAVE BEEN ENROLLED IN A CHEMICAL DEPENDENCY/SUBSTANCEABUSE PROGRAM, SOME INFORMATION MAY BE OMITTED. This clinical summary was aggregated from multiple sources. Caution should be exercised in using it in the provision of clinical care. This summary normalizes information from multiple sources, and as a consequence, information in this document may materially change the coding, format and clinical context of patient data. In addition, data may be omitted in some cases. CLINICAL DECISIONS SHOULD BE BASED ON THE PRIMARY CLINICAL RECORDS. [employer] [facility]. provides no warranty or guarantee of the accuracy or completeness of information in this document.
[2023-04-06 07:08] LABS: Chlamydia By Nucleic Acid AMP Negative (Negative); Gonococcus By Nucleic Acid AMP Negative (Negative)
== END | disposition home or self-care (01) ==
PROVIDERS: PCP Family Medicine; Referring Provider Advanced Practice Midwife; Visit Provider Advanced Practice Midwife
DX: Z34.90 Encounter for supervision of normal pregnancy, unspecified, unspecified trimester (principal); Z3A.00 Weeks of gestation of pregnancy not specified
CPT/HCPCS: 87086; 87491; 87591

== ENCOUNTER → 2023-04-28 | Outpatient (CLI) | payer OTHER, SELFPAY ==
--- OUTSIDE RECORDS SUMMARY | 2023-04-28 09:02 | XMS RPT_ITS | CCD ---
Author Name Unknown Address [address] [place] [address] Organization [employer] Care Team Providers Care Service Delivery Analyst Name Role Phone Maria Luz Ledezma Unavailable Unavailable Unavailable Maria Luz Ledezma Unavailable Iban Mills Unavailable Jerman Gaby Jacquie Unavailable [facility] Unavailable Arjun Ji Unavailable Marky Copeland Unavailable [facility] Provide r [facility] Provide r OSCAR KOENIG Referring Unavailable OSCAR KOENIG Attending Unavailable [facility] Unavaila Armin Meier Unavailable Unavailable Razo, Lucy Attending Unavailable Razo, Lucy Referring Unavailable [facility] Unavailable [facility] Unavailable Waldo, Dr. New Hardin Attending Unavailabl e Waldo, Dr. [place]in Referring Unavailabl e [facility] Unavailable Waldo, Dr. [place]in Attending Unavailabl e Waldo, Dr. [place] Referring UnavailMD SAIRA Lara Attending Chelitava MD SAIRA Hayward Referring Unava ilable [facility] Unavailable Kamenik, Ms. Armin Su Attending Chelitavai jose [facility] Unav Saira Fernando MD Primary Care Provider SAIRA HERNANDEZ Primary Care Unavaila ble GARICA, JAGPRIT PRUITT Attending SAIRA Colón Primary Care Unavaila WENDY Peter Admitting Unavailable WENDY LAO Referring Unavailable SAIRA HERNANDEZ Primary Care Unavaila [...] 11-04-2022 09:24-0400 Body height 167.6 cm Wendy Adamsraji HARTMANN Work Phone: [facility] 11-04-2022 09:24-0400 Body mass index (BMI) [Ratio] 27.44 kg/m2 Wendy Lao ETHNOGRAPHIC [employer]ERIAL[employer]ATOR Work Phone: [facility] 11-04-2022 09:24-0400 Body weight 77.11 kg Wendy Laotal HARTMANN Work Phone: [facility] 03-31-2022 15:23-0500 Body height 168 cm Gaby Barkley Other Phone: [facility] 03-31-2022 15:23-0500 Body temperature 97.7 [degF] Gaby Barkley Other Phone: [facility] 03-31-2022 15:23-0500 Diastolic blood pressure 76 mm[Hg] Gaby Barkley Other Phone: [facility] 03-31-2022 15:23-0500 Heart rate 93 /min Gaby Barkley Other Phone: [facility] 03-31-2022 15:23-0500 Respiratory rate 16 /min Gaby Barkley Other Phone: [facility] 03-31-2022 15:23-0500 SaO2% (BldA) [Mass fraction] 97 % Gaby Barkley Other Phone: [facility] 03-31-2022 15:23-0500 Systolic blood pressure 106 mm[Hg] Gaby Barkley Other Phone: [facility] 10-20-2021 10:16-0400 Body height 167.64 cm Gaby Barkley Work Phone: [facility] Work Phone: 10-20-2021 10:16-0400 Body mass index (BMI) [Ratio] 27.96 kg/m2 Gaby Dhillon [employer] Work Phone: [facility] Work Phone: 10-20-2021 10:16-0400 Body surface area Derived from formula 1.88 m2 Gaby Barkley Work Phone: [facility] Work Phone: 10-20-2021 10:16-0400 Body weight 78.59 kg Gaby Barkley Work Phone: [facility] Work Phone: 10-20-2021 10:16-0400 Diastolic blood pressure 80 mm[Hg] Gaby Dhillon [employer] Work Phone: [facility] Work Phone: 10-20-2021 10:16-0400 Heart rate 104 /min Gaby Dhillon [employer] Work Phone: [facility] Work Phone: 10-20-2021 10:16-0400 SaO2% (BldA) [Mass fraction] 98 % Gaby Barkley Work Phone: [facility] Work Phone: 10-20-2021 10:16-0400 Systolic blood pressure 110 mm[Hg] Gaby Barkley Work Phone: [facility] Work Phone: 10-06-2021 10:56-0400 Body height 167.64 cm Gaby Barkley Work Phone: [employer] Work Phone: 10-06-2021 10:56-0400 Body mass index (BMI) [Ratio] 27.76 kg/m2 Gaby Barkley Work Phone: [employer] Work Phone: 10-06-2021 10:56-0400 Body surface area Derived from formula 1.88 m2 Gaby Barkley Work Phone: [employer] Work Phone: 10-06-2021 10:56-0400 Body weight 78.02 kg Gaby Barklye Work Phone: [employer] Work Phone: 10-06-2021 10:56-0400 Diastolic blood pressure 70 mm[Hg] Gaby Dhillon [employer] Work Phone: [employer] Work Phone: 10-06-2021 10:56-0400 Systolic blood pressure 110 mm[Hg] Gaby Dhillon [employer] Work Phone: [employer] Work Phone: 06-24-2021 14:23-0400 Body height 167.6 cm Oscar Koenig MD Work Phone: [facility] 06-24-2021 14:23-0400 Body mass index (BMI) [Ratio] 27.44 kg/m2 Oscar Koenig MD Work Phone: [facility] 06-24-2021 14:23-0400 Body weight 77.11 kg Oscar Koenig MD Work Phone: [facility] 06-24-2021 14:23-0400 Diastolic blood pressure 61 mm[Hg] Oscar Koenig MD Work Phone: [facility] 06-24-2021 14:23-0400 Heart rate 84 /min Oscar Koenig MD Work Phone: [facility] 06-24-2021 14:23-0400 SaO2% (BldA) [Mass fraction] 96 % Oscar Koengi MD Work Phone: [facility] 06-24-2021 14:23-0400 Systolic blood pressure 119 mm[Hg] Oscar Koenig MD Work Phone: [facility] 06-09-2021 09:18-0400 Body height 167.64 cm Gaby Barkley Work Phone: [facility] Work Phone: 06-09-2021 09:18-0400 Body mass index (BMI) [Ratio] 27.44 kg/m2 Gaby Barkley Work Phone: [facility] Work Phone: 06-09-2021 09:18-0400 Body surface area Derived from formula 1.87 m2 Gaby Barkley Work Phone: [facility] Work Phone: 06-09-2021 09:18-0400 Body weight 77.11 kg Gaby Barkley Work Phone: [facility] Work Phone: 06-09-2021 09:18-0400 Diastolic blood pressure 70 mm[Hg] Gaby Dhillon [employer] Work Phone: [facility] Work Phone: 06-09-2021 09:18-0400 Systolic blood pressure 110 mm[Hg] Gaby Dhillon [employer] Work Phone: [facility] Work Phone: 05-26-2021 15:43-0400 Diastolic blood pressure 72 mm[Hg] Gaby Wood Other Phone: [facility] 05-26-2021 15:43-0400 Heart rate 76 /min Gaby Wood Other Phone: [facility] 05-26-2021 15:43-0400 Respiratory rate 15 /min Gaby Barkley Other Phone: [facility] 05-26-2021 15:43-0400 SaO2% (BldA) [Mass fraction] 98 % Gaby Barkley Other Phone: [facility] 05-26-2021 15:43-0400 Systolic blood pressure 114 mm[Hg] Gaby Wood Other Phone: [facility] 05-26-2021 13:00-0400 Body temperature 98.6 [degF] Gaby Barkley Other Phone: [facility] 05-26-2021 08:51-0400 Body height 167.5 cm Gaby Wood Other Phone: [facility] 05-26-2021 08:51-0400 Body weight 72.7 kg Gaby Barkley Other Phone: [facility] 04-07-2021 08:18-0500 Body height 167.64 cm Gaby Jacquie Wood Work Phone: [facility] Work Phone: 04-07-2021 08:18-0500 Body mass index (BMI) [Ratio] 27.44 kg/m2 Gaby L Wood Work Phone: [facility] Work Phone: 04-07-2021 08:18-0500 Body surface area Derived from formula 1.87 m2 Gaby Barkley Work Phone: [facility] Work Phone: 04-07-2021 08:18-0500 Body temperature 96.9 [degF] Gaby Barkley Work Phone: [facility] Work Phone: 04-07-2021 08:18-0500 Body weight 77.11 kg Gaby Barkley Work Phone: [facility] Work Phone: 04-07-2021 08:18-0500 Diastolic blood pressure 66 mm[Hg] Gaby Barkley Work Phone: [facility] Work Phone: 04-07-2021 08:18-0500 Heart rate 86 /min Gaby Barkley Work Phone: [facility] Work Phone: 04-07-2021 08:18-0500 SaO2% (BldA) [Mass fraction] 97 % Gaby Barkley Work Phone: [facility] Work Phone: 04-07-2021 08:18-0500 Systolic blood pressure 110 mm[Hg] Gaby Barkley Work Phone: [facility] Work Phone: 12-01-2020 06:44-0400 Body height 167.6 cm Maria Luz Perryrdle Other Phone: [facility] 12-01-2020 06:44-0400 Body temperature 97.16 [degF] Maria Luz Perryrdle Other Phone: [facility] 12-01-2020 06:44-0400 Body weight 74 kg Maria Luz Brisa Other Phone: [facility] 12-01-2020 06:44-0400 Diastolic blood pressure 95 mm[Hg] Maria Luz Brisa Other Phone: [facility] 12-01-2020 06:44-0400 Heart rate 70 /min Maria Luz Brisa Other Phone: [facility] 12-01-2020 06:44-0400 Respiratory rate 16 /min Maria Luz Brisa Other Phone: [facility] 12-01-2020 06:44-0400 SaO2% (BldA) [Mass fraction] 98 % Maria Luz Brisa Other Phone: [facility] 12-01-2020 06:44-0400 Systolic blood pressure 140 mm[Hg] Maria Luz Brisa Other Phone: [facility] 09-03-2020 13:30-0400 Body height 167.64 cm Maria Luz L Brisa Work Phone: [facility] [employer] Work Phone: 09-03-2020 13:30-0400 Body mass index (BMI) [Ratio] 24.41 kg/m2 Maria Luz L Brisa Work Phone: [employer] Work Phone: 09-03-2020 13:30-0400 Body surface area Derived from formula 1.78 m2 Maria Luz L Brisa Work Phone: [employer] Work Phone: 09-03-2020 13:30-0400 Body temperature 98 [degF] Maria Luz L Brisa Work Phone: [employer] Work Phone: 09-03-2020 13:30-0400 Body weight 68.6 kg Maria Luz L Brisa Work Phone: [employer] Work Phone: 09-03-2020 13:30-0400 Diastolic blood pressure 62 mm[Hg] Maria Luz Ledezma Work Phone: [employer] Work Phone: 09-03-2020 13:30-0400 Systolic blood pressure 110 mm[Hg] Maria Luz Ledezma Work Phone: [place] [address] [place] Work Phone: Encounters Encounter Date Encounter Type Care Provider Facility Start: 11-17-2022 End: 11-17-2022 [facility] Start: 11-17-2022 End: 11-17-2022 Office outpatient visit 10 minutes Wendy Lao CNP Work Phone: [facility] Procedures [...] procedure 11/17/2022 2:00 PM EDT Office Visit [facility] [address] [place] [address] Wendy aLo CNP [address] [place] [address] [facility] Start: 10-23-2022 Influenza vaccination Sequenti al Influenza Vaccine (#1) [facility] Start: 11-26-2021 End: 11-26-2021 Patient encounter procedure 11/26/2021 Office Visit Cardiology Oscar Koenig MD [address] [place] [address] [facility] Start: 11-18-2021 EPV, Provider: Saira Hernandez, Status: Pen, Time: 2:40 PM EPV, Provider: Saira Hernandez, Status: Pen, Time: 2:40 PM [facility] Work Phone: Start: 10-20-2021 EPV, Provider: Saira Hernandez, Status: Pen, Time: 10:20 AM EPV, Provider: Saira Hernandez, Status: Pen, Time: 10:[address] Work Phone: Start: 09-03-2021 History and physical examination, annual for health maintenance Wellness Visit [facility] Start: 08-26-2021 COVID-19 Vaccine (3 - Booster for Pfizer series) COVID-19 Vaccine (3 - Booster for Pfizer series) [facility] Start: 08-01-2021 End: 08-01-2021 Patient encounter procedure 08/01/2021 Appointment Radiology Oscar Koenig MD [address] [place] [address] [facility] Start: 07-30-2021 Tetanus vaccination Tetanus: Every 1 0yrs [facility] Start: 06-12-2021 NPV, Provider: Garcia El, Status: Pen, Time: 11:15 AM NPV, Provider: Garcia El, Status: Pen, Time: 11:15 AM [facility] [address] [facility] Work Phone: Start: 06-09-2021 NPV, Provider: Osmany Penny, Status: Pen, Time: 9:00 AM NPV, Provider: Osmany Penny, Status: Pen, Time: 9:00 AM [facility] Work Phone: Start: 06-09-2021 Patient encounter procedure [facility] Start: 05-26-2021 End: 05-27-2022 [facility] Immunizations Immunization Date Immunization Notes Care Provider Marquis cervantes 03-29-2021 Pfizer-BioNTech COVID-19 Vacc 30 MCG/0.3ML Intramuscular Suspension Gaby Barkley Work Phone: [facility] Work Phone: Payers Date Payer Category Payer Unknown 2022 Unknown [id number] 2021 Worker's Compensation [id number] 2021 Worker's Compensation 22.128 258 2021 Worker's Compensation 22-128 258 2019 Unknown [id number] 1999 Unknown [id number] 2.16. [id number] 1999 Unknown [id number] 2.16. [id number] 1999 Unknown [id number] 2.16. [id number] 1999 Unknown [id number] 2.16. [id number] 1999 Unknown [id number] 2.16. [id number] 1999 Unknown 1931 2.16.8 [id number] 1999 Unknown [id number] 2.16. [id number] 1999 Unknown [id number] 2.16. [id number] 1999 Unknown [id number] 2.16. [id number] 1999 Unknown [id number] 2.16. [id number] 1999 Unknown [id number] 2.16. [id number] Unknown [id number] Social History Date Type Detail Facility Start: 06-24-2021 End: 11-17-2022 Non-smoker Non-smoker [facility] [address] Work Phone: Tobacco smoking consumption unknown [facility] Start: 06-24-2021 Tobacco smoking status NHIS Never smoked tobacco [facility] Start: 06-24-2021 Tobacco use and exposure Smokeless tobacco non-user [facility] Start: 06-24-2021 End: 11-18-2022 Alcohol intake Current drinker of alcohol (finding) [facility] Start: 2000 Sex Assigned At Not on file [facility] Start: 06-14-2021 End: 06-24-2021 Exposure to SARS-CoV-2 (event) Not sure [facility] Start: 08-01-2021 End: 11-17-2022 Tobacco use panel [facility] Start: 11-16-2022 Gender identity Identifies as female gender (finding) [facility] Start: 11-16-2022 Sexual orientation Heterosexual (finding) [facility] Functional Status Date Assessment Result Facility Functional observable [facility] Mental Status Date Assessment Result Facility 05-26-2021 Cognitive functions 27-May-19 2212:30 [facility] Clinical Notes 10-20-2020 to 11-18-2022 Wendy Lao CNP - 11/18/2022 4:45 PM Wendy Brower CNP - 11/04/2022 9:30 AM Carlos Izaguirre RN - 07/31/2021 4:27 PM Carlos Izaguirre RN - 07/29/2021 2:56 PM EDT Note Date & Type Note Facility 11-18-2022 History of Present illness Narrative [facility] [address] [facility] [address] [facility] [id number] Chief Complaint Patient presents with Right Knee - Follow-up Juancarlos Patino returns to the office today for follow-up on the right knee. I saw her about 2 weeks ago after she sustained an injury while playing [employer]. I did place her in a hinged [...] back as needed. documented in this encounter [facility] 11-04-2022 History of Present illness Narrative Juancarlos Patino 2000 CC: 22 y.o. is a she with right knee pain. HPI: Knee Pain: Patient presents to the office today with complaints of right knee pain. She states that a couple of days ago she was playing [employer], there was some uneven surface and she [...] Wendy Lao CNP documented in this encounter [facility] 10-06-2021 Note Diagnoses/Problems Assessed control counseling (V25.09) (Z30.09) [...] NO CONCERNS. LMP: 09/28/2021 History of Present [id number] presents for Nexplanon being overdue. Patient wanted [...] Implant Vitals Vital Signs Recorded: 06Oct2021 10:56AM [id number] Txnphrixg43 Height5 ft 6 in Pivfif734 lb BMI Bvlfhvkyvp49.76 kg/m2 BSA Calculated1.88 [id number] Physical Exam General: None acute distress Eye: Intraocular movements are intact HEENT: Normocephalic Cardiovascular: Regular rate Respiratory: Respirations are nonlabored Gastrointestinal: Nondistended Musculoskeletal: Normal range of motion Neurologic: Alert and oriented x3 Psychiatric: Cooperative appropriate mood and affect. Signatures Electronically signed by : [place] DO; Oct 06 2021 11:08AM EST (Author) [employer] 07-31-2021 History of Present illness Narrative Patient [...] incidentally found while on ECHO while at [facility] at initial encounter. Issue is, unsure whether bureau of workers comp ([employer]) is going to cover cardiac MRI or [...] submit all necessary paperwork and bills to [employer] (acquired by [employer] in 2014) if needed. Will keep MRI as scheduled tomorrow, 08/01/21 at 7:30 AM. documented in this encounter [facility] 07-29-2021 History of Present illness Narrative [facility] C9 form faxed to [facility] [phone] for cardiac MRI scheduled for 08/01 documented in this encounter [facility] 06-24-2021 History of Present illness Narrative Cardiology Clinic Visit Heart & Vascular [facility] 06/24/2021 Oscar Koenig MD [address] [place] [id number] Patient: Juancarlos Patino Date of : 2000 (21 y.o.) Referring Provider: System, Provider Not In PCP: Gaby Barkley, SHAHBAZ Assessment & Plan Juancarlos Patino is a 21 y.o. woman with no significant past medical history who works in the [employer] and presents to clinic for evaluation of a right atrial mass. Right atrial mass -personally reviewed her echocardiogram images from [facility]. There appears to be a right [...] 4 months (around 10/25/2021). Oscar Koenig MD [facility] Non-Invasive Cardiology [facility] Chief Complaint: Establish Care (Cardiac clearance for work/c/o left arm tingling sometimes) Subjective Juancarlos Patino is a 21 y.o. woman with no significant past medical history who works in the [place] [employer] and presents to clinic for evaluation of a right atrial mass. 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 EMS was called to the snf and the patient was taken to the [...] LDLDIRECT, TRIG, HDL documented in this encounter [facility] 06-24-2021 Instructions Farnaz Izaguirre RN - 06/24/2021 2:16 PM EDT How to contact your Care Team: Provider: Oscar Koenig MD Nurse: Farnaz Izaguirre RN In case of an emergency please call 911. REFILLS: When in need for refills please call your care team or the office at [phone]. Please include medication name, pharmacy name, and specify 30-day or 90-day supply. Please check with your pharmacy within 24 hours of request for your refill. You must follow up as directed to continue current refills. Thank you documented in this encounter [facility] 05-26-2021 Hospital Discharge instructions Follow Up Appointment 1:Physician/Dept/Service: Radha Villegas for Referral: Hospital Follow-upCall to Schedule in: 1 weekScheduled Date/Time: 09-Jun-2021 09:00Location: [address], [place] [address]Qndbk Number: [phone]: Please keep already scheuduled appointment for your follow-up appointment [facility] 11-09-2020 History of Present illness Narrative Juancarlos [...] bowels. She denies any history of anemia. [facility] Work Phone: 10-20-2020 History of Present [...] 4 a day on average [facility] Work Phone: Evaluation note Musculoskeletal: Mov es extremities without difficultyGastrointestinal: Soft, nontender, nondistended, + BSCardiovascular: S1, S2, regular rate and rhythm, telemetry with sinus rhythmRespiratory/Thorax: Respirations even and unlabored at rest, clear to auscultation anteriorly and posteriorly, on room airHead/Neck: Normocephalic, atraumaticENMT: Mucous membranes moistEyes: EOMI, clear scleraSkin: Warm and dryNeurological: Sleeping, drowsy, oriented c5Hdnciqxlicn: No edema, +2 pedal pulsesConstitutional: Well developed, very drowsy, oriented x3, no acute distress, cooperativePsychological: Drowsy [facility] Sprain of medial collateral ligament of right knee, initial encounter- Primary [facility] Diagnosis Sprain of medial collateral ligament of right knee, initial encounter- Primary [facility] [id number]-alrq-[id number] G0 presents for annual exam. Patient safe [...] breast exams. Patient has no other acute [facility] Work Phone: History of Present illness NarrativeAlexis [...] No sx. No vaginal discharge.[facility] Work Phone: History of Present illness NarrativeAlexis [...] eats fiberone bars. No sx. No vaginal discharge.[facility] Work Phone: History of Present illness [...] eats fiberone bars. No sx. No vaginal discharge.[facility] Work Phone: History of Present illness Inclnxbbk63-aigw-xri presents for Nexplanon being overdue. Patient wanted removed today but not when discussing control she would like another one. Patient is no acute concernsWStar Scientific Work Phone: History of Present illness NarrativeAlexis is a 22-year-old who comes in requesting a Nexplanon removal. She is ready to conceive. She plans and getting in November. Would like to not be at the time she gets butis wishing the Nexplanon out today [employer] Work Phone: Summary Purpose Family History No [...] FoundDocuments on File Type Date Recorded Patient Post Office Markup Clerk Expl anation Advance Directives and Living Will [...] Contrast with [employer] Oscar Koenig MD [address] [place] [address] Referral ID Status Reason Start Date Expiration Date V isits Requested Visits Authorized [id number] New Request 06/24/2021 06/24/2022 1 1 Specialty Diagnoses / Procedures Referred By Contac t Referred To Contact Radiology Diagnoses Familial hyperlipidemia Chest pain, unspecified type Procedures CT CALCIUM SCORE SCREENING Oscar Koenig MD [address] [place] [address] Referral ID Status Reason Start Date Expiration Date V isits Requested Visits Authorized [id number] New Request 06/24/2021 06/24/2022 1 1 Additional Source Comments INFORMATION SOURCE (unrecogn ized section and content) DATE CREATED AUTHOR AUTHOR'S ORGANIZ ATION 09/15/2019 [facility] DATE CREATED AUTHOR AUTHOR'S ORGANIZ ATION 08/02/2021 [facility] DATE CREATED AUTHOR AUTHOR'S ORGANIZ ATION 06/26/2022 [facility] DATE CREATED AUTHOR AUTHOR'S ORGANIZ ATION 06/26/2022 [employer] DATE CREATED AUTHOR AUTHOR'S ORGANIZ ATION 08/21/2022 [facility] DATE CREATED AUTHOR AUTHOR'S ORGANIZ ATION 11/04/2022 [facility] DATE CREATED AUTHOR AUTHOR'S ORGANIZ ATION 11/25/2022 [facility] <item><item><item> Privacy Markings (unrecogniz ed section and [...] Cardiology Diagnoses Accidental fentanyl poisoning, initial encounter ([facility]) System, Provider Not In [facility] [address] [place] [address] Referral ID Status Reason Start Date Expiration Date V isits Requested Visits Authorized [id number] Pending Review 06/17/2021 06/17/2022 1 1 Reason Comments Pain Reason Comments Follow-up Care Teams (unrecognized sec tion and content) Service Delivery Analyst Relationship Specialty Start Date End Date Gaby Barkley, SHAHBAZ [address] [place] [address] PCP - General Nurse Practitioner 06/24/21 Service Delivery Analyst Relationship Specialty Start Date End Date Saira Hernandez MD [address] [place] [id number] PCP - General Family Medicine 10/29/22 Service Delivery Analyst Relationship Specialty Start Date End Date Saira Hernadnez MD [address] [place] [id number] PCP - General Family Medicine 10/29/22 FOR [...] BE BASED ON THE PRIMARY CLINICAL RECORDS. [employer] [facility]. provides no warranty or guarantee of the accuracy or completeness of information in this document.
[2023-04-28 09:06] LABS: Absolute Lymphocyte Count 1.32 X10^3/uL (0.83-4.51); Absolute Neutrophil Count 8.2 X10^3/uL (2.0-7.7); Basophil# 0.05 X10^3/uL; Basophil% 0.5 % (0-1); Eosinophil# 0.18 X10^3/uL; Eosinophils% 1.8 % (0-5); Hematocrit 39.6 % (37-47); Hemoglobin 13.8 g/dL (12.0-15.0); Lymphocyte # 1.32 X10^3/ul (0.83-4.51); Lymphocyte % 12.9 % (19-41); Mean Corp Hgb Conc 34.8 g/dL (32-36); Mean Corpuscular Hgb 29.6 pg (27.0-32.0); Mean Corpuscular Volume 84.8 fL (81-99); Mean Platelet Vol. 8.9 fl (6.2-12.0); Monocyte# 0.48 X10^3/uL; Monocyte% 4.7 % (0-10); NRBC Flagged by Analyzer 0 % (0-5); Neutrophil # 8.15 X10^3/uL (2.7-7.7); Neutrophil % 79.5 % (47-70); Platelet Count 235 K/mm3 (150-450); RBC Distribution Width CV 12.1 % (11.6-14.6); RBC Distribution Width SD 36.7 fl (35.1-43.9); Red Blood Count 4.67 M/mm3 (4.2-5.4); White Blood Count 10.2 K/mm3 (4.4-11.0)
[2023-04-28 10:17] LABS: HIV - WCH Non-Reactive (Nonreactive); Hepatitis B Surface Antigen Non-Reactive (Nonreactive); Hepatitis C Antibody Non-Reactive (Nonreactive); Rubella IgG Reactive (Nonreactive); Syphilis Antibodies Non-reactive
[2023-04-28 10:53] LABS: Hemoglobin A1c 5.1 % (3.8-5.6)
== END | disposition home or self-care (01) ==
LOC: PAVLAB 08:39
PROVIDERS: PCP Family Medicine; Referring Provider Advanced Practice Midwife; Visit Provider Advanced Practice Midwife
DX: Z34.02 Encounter for supervision of normal first pregnancy, second trimester (principal); Z31.430 Encounter of female for testing for genetic disease carrier status for procreative management
CPT/HCPCS: 36415; 83036; 85025; 86703; 86762; 86780; 86803; 86850; 86900; 86901; 87340

== ENCOUNTER → 2023-08-16 | Outpatient (CLI) | payer OTHER, SELFPAY ==
[2023-08-16 13:09] LABS: Absolute Lymphocyte Count 1.44 X10^3/uL (0.83-4.51); Absolute Neutrophil Count 8.2 X10^3/uL (2.0-7.7); Basophil# 0.03 X10^3/uL; Basophil% 0.3 % (0-1); Eosinophil# 0.12 X10^3/uL; Eosinophils% 1.2 % (0-5); Hematocrit 36.6 % (37-47); Hemoglobin 12.6 g/dL (12.0-15.0); Lymphocyte # 1.44 X10^3/ul (0.83-4.51); Lymphocyte % 13.9 % (19-41); Mean Corp Hgb Conc 34.4 g/dL (32-36); Mean Corpuscular Hgb 29.4 pg (27.0-32.0); Mean Corpuscular Volume 85.5 fL (81-99); Mean Platelet Vol. 8.9 fl (6.2-12.0); Monocyte# 0.49 X10^3/uL; Monocyte% 4.7 % (0-10); NRBC Flagged by Analyzer 0 % (0-5); Neutrophil # 8.19 X10^3/uL (2.7-7.7); Neutrophil % 79.3 % (47-70); Platelet Count 228 K/mm3 (150-450); RBC Distribution Width CV 12.3 % (11.6-14.6); Red Blood Count 4.28 M/mm3 (4.2-5.4); White Blood Count 10.3 K/mm3 (4.4-11.0)
[2023-08-16 13:25] LABS: Glucose Challenge Gest 1H 50g 179 mg/dL (70-140)
[2023-08-16 13:59] LABS: HIV - WCH Non-Reactive (Nonreactive); Syphilis Antibodies Non-reactive
== END | disposition home or self-care (01) ==
LOC: PAVLAB 12:50
PROVIDERS: PCP Family Medicine; Referring Provider Obstetrics & Gynecology; Visit Provider Obstetrics & Gynecology
DX: O09.92 Supervision of high risk pregnancy, unspecified, second trimester (principal); Z13.1 Encounter for screening for diabetes mellitus; Z3A.00 Weeks of gestation of pregnancy not specified
CPT/HCPCS: 36415; 82950; 85025; 86703; 86780

== ENCOUNTER → 2023-09-20 | Outpatient (CLI) | payer OTHER, SELFPAY ==
--- NOTE | 2023-09-20 15:34 | US_ITS ---
STUDY: SECOND AND THIRD TRIMESTER OBSTETRICAL ULTRASOUND - LIMITED REASON FOR EXAM: Female, 23 years old gestational diabetes LMP: February 10, 2023. PRIOR ULTRASOUND: Comparison is made with prior study dated March 25, 2023. TECHNIQUE: Transabdominal TECHNICAL QUALITY: Adequate. FINDINGS: There is a single intrauterine fetus. The fetus is in a cephalic presentation. There is demonstrated cardiac activity with a heart rate of 148 bpm. There is a normal amniotic fluid volume. The largest amniotic fluid pocket measures 7.1 cm. The amniotic fluid index (TASIA) is 20.1 cm. The placenta is posterior in location and is not low lying. There are Grade 1 placental changes. BIOMETRY: BPD: 9.4 cm: 38 weeks, 2 days HC: 33.1 cm: 37 weeks, 5 days AC: 30.7 cm: 34 weeks, 5 days FL: 6.4 cm: 33 weeks, 1 days Age by LMP: 33 weeks, 5 days. CRIS by LMP: November 03, 2023. age by current US: 36 weeks, 3 days. CRIS by current US: October 15, 2023. Estimated weight: 2552 grams, +/- 383 grams, 78 percentile. US/OB Limited With Biometrics IMPRESSION: Single live intrauterine gestation with mean gestational age of 36 weeks 3 Electronically Signed: Shay Gaxiola MD at 9:38 EDT ,
== END | disposition home or self-care (01) ==
LOC: US 15:34
PROVIDERS: Referring Provider Obstetrics & Gynecology; Visit Provider Obstetrics & Gynecology
DX: O24.415 Gestational diabetes mellitus in pregnancy, controlled by oral hypoglycemic drugs (principal); Z3A.00 Weeks of gestation of pregnancy not specified
CPT/HCPCS: 76816

== ENCOUNTER → 2023-10-08 | Outpatient (CLI) | payer OTHER, SELFPAY | END | disposition home or self-care (01) | LOC: LABSPEC 16:59 | PROVIDERS: Referring Provider Obstetrics & Gynecology; Visit Provider Obstetrics & Gynecology | DX: O09.93 Supervision of high risk pregnancy, unspecified, third trimester (principal); Z3A.00 Weeks of gestation of pregnancy not specified | CPT/HCPCS: 87081 ==

== ENCOUNTER → 2023-10-13 | Outpatient (CLI) | payer OTHER, SELFPAY ==
--- NOTE | 2023-10-13 08:54 | US_ITS ---
EXAM: US SECOND OR THIRD TRIMESTER , TRANSABDOMINAL CLINICAL INDICATION: growth TECHNIQUE: Transabdominal obstetrical ultrasound of the maternal pelvis and a second or third trimester with image documentation. COMPARISON: 09/20/2023 FINDINGS: FETUS: Single viable IUP. HEART RATE: heart rate: 145 bpm. PRESENTATION: Cephalic presentation. PLACENTA: Fundal placenta. No placenta previa. No abruption. AMNIOTIC FLUID: Amniotic fluid volume is 20.77 cm with maximal vertical pocket of 7.3 cm. ANATOMY: Intracranial/face anatomy not seen. Spinal anatomy not seen. Abdominal anatomy not seen. Extremities not seen. Four-chamber heart not seen. Umbilical cord not seen. BIOMETRICS GESTATIONAL AGE:39 weeks, 1 day. CRIS: 10/19/2023. EFW: Estimated weight: 3618 g +/- 5 143 g (92.9%). BPD: 9.88 cm. HC: 34.74 cm. AC: 35.33 cm. FL: 7.04 cm. MATERNAL: UTERUS: No significant abnormality. No myometrial mass. CERVIX: Normal as visualized. The cervix is closed. ADNEXA: The right ovary is not visualized. The left ovary is not visualized. FREE FLUID: None. US/OB Limited With Biometrics IMPRESSION: Viable IUP demonstrated interval growth now at the 93rd percentile of estimated weight. Electronically Signed: Chris Paul DO at 21:22 EDT ,
== END | disposition home or self-care (01) ==
LOC: US 08:52
PROVIDERS: PCP Family Medicine; Referring Provider Advanced Practice Midwife; Visit Provider Advanced Practice Midwife
DX: O24.415 Gestational diabetes mellitus in pregnancy, controlled by oral hypoglycemic drugs (principal); Z3A.36 36 weeks gestation of pregnancy
CPT/HCPCS: 76816

== ENCOUNTER 2023-10-15 14:10 | Outpatient (CLI) | payer OTHER, SELFPAY ==
[2023-10-15 14:35] VITALS: BMI 37.3
[2023-10-15 14:40] VITALS: BP 126/74; PULSE 96
[2023-10-15 14:41] VITALS: RESP 16; TEMP 36.6
--- NOTE | 2023-10-15 14:47 | US_ITS ---
INDICATION: well-being EXAMINATION: Ultrasound US Biophysical Profile W/O Nonst TECHNIQUE: Transabdominal pelvic ultrasound was performed. COMPARISON: 10/13/2023 LMP: Unknown. Beta-hCG: Unknown. Provided EGA: 37 weeks 2 days FINDINGS: INTRAUTERINE GESTATION(s): Single. HEART MOTION is 136 bpm. AMNIOTIC FLUID INDEX (TASIA): 10.96 cm. BIOPHYSICAL PROFILE (BPP): 09/29 -- Breathin/2. -- Movement: 2/2. -- Tone: 2/2. --TASIA: 2/2. PRESENTATION: Cephalic PLACENTA: Fundal. There is no placenta previa or abruption. CERVIX: The cervix is not visualized. US/Biophysical Prof W/O Non Stres IMPRESSION: Single live intrauterine with biophysical profile score of 09/29. Electronically Signed: George Mariano MD at 16:55 EDT ,
--- NOTE | 2023-10-15 17:59 | OB.TRI.HP_ITS ---
HPI - General HPI Narrative TIAGO ONEIL, is a 23 F who presents at 37.2 to for extended monitoring due to multiple variables on NST in office. Maternal Data Information CRIS Calculator Estimated Delivery Date Method Current WG Current Estimate 11/03/23 LMP (Certain) 37w 2d PFSH PFSH Home Medications ?Medication ?Instructions ?Recorded ?Last Taken ?Type PNV 153-FA 400 mcg-om3 35 mg-dha 1 tab PO .hs 03/26/23 10/14/23 20:00 History 25 mg-epa 5 mg-fish oil chew tablet 1 TAB flash glucose scanning reader #1 ea 08/16/23 Unknown Rx (FreeStyle Akiko 2 Coolidge) flash glucose sensor (FreeStyle #1 ea 08/30/23 Unknown Rx Akiko 2 Sensor kit) metformin 500 mg tablet 500 mg PO HS 90 days #90 tabs 09/03/23 Unknown Rx insulin NPH isoph U-100 human 100 20 unit (0.2 mL) subcut QAM 60 09/09/23 10/15/23 08:00 Rx unit/mL (3 mL) subcutaneous pen days #12 mL 20 units (Humulin N NPH U-100 Insulin KwikPen) insulin syringe-needle U-100 0.5 #100 ea 09/13/23 Unknown Rx mL 29 gauge x 1/2 (BD Insulin Syringe) pen needle, diabetic 31 gauge x #100 ea 09/13/23 Unknown Rx 3/16 (BD Ultra-Fine Mini Pen Needle) insulin regular human 100 unit/mL 10 unit (0.1 mL) subcut QAM #10 mL 10/01/23 Unknown Rx injection solution (Humulin R Regular U-100 Insulin) Allergy/AdvReac Type Severity Reaction Status Date / Time No Known Allergies Allergy Verified 10/15/23 14:36 Family History Aunt Cancer, Onset Age: 30 Maternal- Ovarian Grandfather CAD (coronary artery disease) Diabetes Aunt Cancer, Onset Age: 38 cervical ca Mother Hyperlipemia Surgical History History of appendectomy History of tonsillectomy [place] teeth extracted Social History adopted: No household members: spouse current occupational status: employed current occupation: [employer] current occupational exposures/hazards: No pets and animals: Yes pets and animals: dog(s) history of recent travel: No sexually active: Yes Smoking Status: Never smoker alcohol intake: never substance use type: does not use well-balanced diet: daily or most days caffeine: Yes Type: coffee Number of servings: 1 eating out: 1-3 times/week during the past year weight has: increased > 10 lbs what type of physical activity do you participate in: aerobics, weight training and additional details: light weights for arms. Does not do legs or heavy weight. frequency: 1-2 times per week duration: 15-30 minutes/day karen/druze: [employer] seatbelt use: always do you feel safe at home: Yes additional social history: Jasen Bergeron History 1 Elective abortions Hx Para 0 Spontaneous abortions Hx # Term Pregnancies Ectopic pregnancies Hx # Pregnancies Multiple births # of living children Visit Details Expected Delivery Route/Plan Labor Preferences- CB/BF classes: no labor support person: Domenic labor intervention preferences: [] pain management options preferred: epidural cut cord/dad catch: cord : yes PP control planned: discussed discussed possible routes of delivery and associated risks: [] special requests: [] Plans Covid status: [] Flu vaccine: [] Tdap vaccine: given Rhogam: NA LARC form signed: yes Problem list reviewed and updated with the most current plan of care details and appropriate orders placed. Relevant counseling for the gestational age provided. Continue routine care and follow up unless otherwise noted in visit notes/problem list details OB Flowsheet Initial Weight: Not Recorded Date -?-?-?-?-?-?-?-?-?-?-?-?- EGA Weight BP Urine Prot -?-?-?-?-?-?-?-?-?-?-?-?- Glucose FHR FuHt Pres Dilation -?-?-?-?-?-?-?-?-?-?-?-?- Effaced St Visit Note 04/02/23 -?-?-?-?-?-?-?-?-?-?-?-?- 9w 2d 192 lb 8 oz 112/75 -?-?-?-?-?-?-?-?-?-?-?-?- 175 -?-?-?-?-?-?-?-?-?-?-?-?- KW- CRL cons wit h dates. Accepts NIPT and carrier. works with [employer]. Letter for light duty. 04/28/23 -?-?-?-?-?-?-?-?-?-?-?-?- 13w 0d 199 lb 4 oz 113/74 Nega tive -?-?-?-?-?-?-?-?-?-?-?-?- Negative 166 -?-?-?-?-?-?-?-?-?-?-?-?- JV- no lof, vagi nal bleeding, or cramping. complains the most about headaches in . offered phenergan + tylenol and declined. 05/26/23 -?-?-?-?-?-?-?-?-?-?-?-?- 17w 0d 203 lb 112/70 Negative -?-?-?-?-?-?-?-?-?-?-?-?- Negative 149 -?-?-?-?-?-?-?-?-?-?-?-?- MH-No VB, crampi ng. Nausea improved but occurs occa. Enc B6 daily. Declines AFP 06/21/23 -?-?-?-?-?-?-?-?-?-?-?-?- 20w 5d 209 lb 120/80 Negative -?-?-?-?-?-?-?-?-?-?-?-?- Negative 154 0 -?-?-?-?-?-?-?-?-?-?-?-?- MH-Had small marybel unt VB 2 days ago and none today. Feeling discomfort lower abdomen moe left side. RL pain/reassured. No blood in vag vault and cervix closed 07/22/23 -?-?-?-?-?-?-?-?-?-?-?-?- 25w 1d 216 lb 119/82 Negative -?-?-?-?-?-?-?-?-?-?-?-?- Negative 150 25 -?-?-?-?-?-?-?-?-?-?-?-?- SM- no vb lof go od fm no regular ctx 08/16/23 -?-?-?-?-?-?-?-?-?-?-?-?- 28w 5d 224 lb 115/79 Negative -?-?-?-?-?-?-?-?-?-?-?-?- Negative 136 33 -?--?-?-?-?-?-?-?-?-?-?-?- JV- pt got a 179 on glucola and prefers not to do the 3 hour. supplies ordered 08/30/23 -?-?-?-?-?-?-?-?-?-?-?-?- 30w 5d 225 lb 4 oz 118/82 Nega tive -?-?-?-?-?-?-?-?-?-?-?-?- Negative 148 31 -?-?-?-?-?-?-?-?-?-?-?-?- MH-No Vb, LOF. G ood Fm. Using akiko sensor and checking glucose very freq untly. many high reading. Per JENARO:portal message next 4 days of just FBS and 2 hr pp. Larc done. 09/06/23 -?-?-?-?-?-?-?-?-?-?-?-?- 31w 5d 221 lb 105/73 -?-?-?-?-?-?--?-?-?-?-?-?- 140 -?-?-?-?-?-?-?-?-?-?-?-?- -NST only reac tive. Started metformin 2 days ago. Readings still high. Will review with JENARO, sees her in 3 days. 09/09/23 -?-?-?-?-?-?-?-?-?-?-?-?- 32w 1d 221 lb 111/78 Negative -?-?-?-?-?-?-?-?-?-?-?-?- Negative 130 -?-?-?-?-?-?-?-?-?-?-?-?- JV- all levels a re elevated with metformin and the medication is causing stomach issues. wants to start insulin. starting 10 units R with breakfast, 20 units NPH with breakfast, 15 units R with dinner, and 15 units NPH HS. 09/14/23 -?-?-?-?-?-?-?-?-?-?-?-?- 32w 6d 223 lb 6 oz 114/76 Nega tive -?-?-?-?-?-?-?-?-?-?-?-?- 1000 g/dL 130 -?-?-?-?-?-?-?-?-?-?-?-?- Sm- no vb lof go od fm no regular ctx BS adjusted Sm- no vb lof good fm no reg ular ctx BS reviewed insulin adjusted 09/17/23 -?-?-?-?-?-?-?-?-?-?-?-?- 33w 2d 226 lb 3 oz 110/79 Nega tive -?-?-?-?-?-?-?-?-?-?-?-?- Negative 130 -?-?-?-?-?-?-?-?-?-?-?-?- JV- no lof, vagi nal bleeding, or dec fm. fasting levels are better but 2 hr pp breakfasts are elevated. increase breakfast R to 15. NSt reactive. 09/24/23 -?-?-?-?-?-?-?-?-?-?-?-?- 34w 2d 226 lb 2 oz 113/74 Nega tive -?-?-?-?-?-?-?-?-?-?-?-?- Negative 125 -?-?-?-?-?-?-?-?-?-?-?-?- SM- n ovb lof go od fm no regular ctx 10/01/23 -?-?-?-?-?-?-?--?-?-?-?-?- 35w 2d 228 lb 2 oz 109/70 Nega tive -?-?-?-?-?-?-?-?-?-?-?-?- Negative 125 -?-?-?-?-?-?-?-?-?-?-?-?- KW- no vb/lof/ct x. reactive NST. insulin dose adjusted 10/04/23 -?-?-?-?-?-?-?-?-?-?-?-?- 35w 5d 227 lb Negative -?-?-?-?-?-?-?-?-?-?-?-?- Negative 130 -?-?-?-?--?-?-?-?-?-?-?-?- KW- no vb/lof/ct x. NST reactive. plan 38 week IOL per for uncontrolled GDM. 36 week US ordered today. 10/08/23 -?-?-?-?-?-?-?-?-?-?-?-?- 36w 2d 230 lb 114/76 Negative -?-?-?-?-?-?-?-?-?-?-?-?- 250 g/dL 130 37.5 Cephalic 0 -?-?-?-?-?-?-?-?-?-?-?-?- JV- no lof, vagi nal bleeding, or dec fm nst reactive. GBS collected. glucose log reviewed. 10/13/23 -?-?-?-?-?-?-?-?-?-?-?-?- 37w 0d 231 lb 2 oz 126/64 Nega tive -?-?-?-?-?-?-?-?-?-?-?-?- Negative 130 Cephalic 0 -?-?-?-?-?-?-?-?-?-?-?-?- JV- AC 98th% tod ay. overall 92nd% and weighs 8 lbs. nst reactive. was called for delivery before able to review log will send portal message Physical Exam Const alert, oriented x3 and no apparent distress Resp normal respiratory effort, normal air movement, no retractions and no use of accessory muscles Cardio regular rate and regular rhythm GI soft to palpation and non-tender Inspection: Palpation: soft Rectal Exam: deferred no CVA tenderness and external exam normal Bimanual Exam - Vag & Uterus: uterus non-tender and other gravid uterus, normal for gestational age OB / External & Speculum: Negative for herpetic lesions Manual OB Exam: estimated gestational size appropriate and presentation cephalic Amniotic Fluid: no amniotic fluid noted Extremity normal to inspection and full ROM Neuro Motor Exam: strength 5/5 throughout and muscle tone normal throughout Deep Tendon Reflexes: Rt Patellar (L4): 2+ and Lt Patellar (L4): 2+ NST FHR Rate Baby A Baseline: 125 Variability:: Moderate Accelerations:: 15 x 15 Decelerations:: None NST Reactive:: Yes FHR Category:: Category I Assessment & Plan (1) Antepartum variable deceleration: COMMENT: 09/29 BPP, reassuring extended monitoring in WP. safe for d/c home PLAN: Patient presents for triage evaluation secondary to extended monitoring for variables in office on nst. reassuring BPP and monitoring. FHT: Moderate variability reactive no decelerations category I tracing [place]: Contractions Assessment and plan: Reactive NST, reassuring maternal and status patient discharged to home to follow-up in office next week. See problem list details for additional plan information. (2) NST (non-stress test) reactive: COMMENT: 37weeks, reactive nst. Charges/Coding Procedures Urinary/Genital [id number]: 28698-60 non-stress test Interp Multi Select Codes Urinary/Genital Urinary/Genital CPT Codes: 63184-80 non-stress test Interp
== END 2023-10-15 16:50 | disposition home or self-care (01) ==
LOC: WPOUT 14:25 → WP 14:26
PROVIDERS: PCP Family Medicine; Referring Provider Registered Nurse; Visit Provider Registered Nurse
DX: O36.8330 Maternal care for abnormalities of the fetal heart rate or rhythm, third trimester, not applicable or unspecified (principal); Z3A.37 37 weeks gestation of pregnancy
CPT/HCPCS: 59025; 59050; 76819; 99221; G0378

== ENCOUNTER 2023-10-20 07:11 | Inpatient (IN) | payer OTHER, SELFPAY ==
[2023-10-20] VITALS (46 sets, daily range): BP systolic 94–140; BP diastolic 55–93; PULSE 63–105; RESP 15–18; TEMP 36.3–37.1; O2SAT 97–100; BMI 37.3
[2023-10-20 08:02] LABS: Absolute Lymphocyte Count 1.49 X10^3/uL (0.83-4.51); Absolute Neutrophil Count 8.7 X10^3/uL (2.0-7.7); Basophil# 0.03 X10^3/uL; Basophil% 0.3 % (0-1); Eosinophil# 0.14 X10^3/uL; Eosinophils% 1.3 % (0-5); Hematocrit 37.3 % (37-47); Hemoglobin 12.8 g/dL (12.0-15.0); Lymphocyte # 1.49 X10^3/ul (0.83-4.51); Lymphocyte % 13.5 % (19-41); Mean Corp Hgb Conc 34.3 g/dL (32-36); Mean Corpuscular Hgb 28.9 pg (27.0-32.0); Mean Corpuscular Volume 84.2 fL (81-99); Mean Platelet Vol. 9.7 fl (6.2-12.0); Monocyte# 0.61 X10^3/uL; Monocyte% 5.5 % (0-10); NRBC Flagged by Analyzer 0 % (0-5); Neutrophil # 8.71 X10^3/uL (2.7-7.7); Neutrophil % 78.9 % (47-70); Platelet Count 195 K/mm3 (150-450); RBC Distribution Width CV 12.7 % (11.6-14.6); RBC Distribution Width SD 38.5 fl (35.1-43.9); Red Blood Count 4.43 M/mm3 (4.2-5.4)
[2023-10-20] MEDS: 0.9% Normal Saline Single 100 ML IV.SOLN. INTRA-UTER (08:08)
[2023-10-20] MEDS: Lactated Ringers 1,000 ML 50 ML IV (08:09)
--- NOTE | 2023-10-20 08:37 | HP.PCM.OB_ITS ---
HPI - General General Date of Admission: 10/20/23 HPI Narrative TIAGO ONEIL, is a 23 y/o @ 38 weeks 0 days who presents to L&D for IOL due to gestational diabetes. Maternal Data Information CRIS Calculator Estimated Delivery Date Method Current WG Current Estimate 11/03/23 LMP (Certain) 38w 0d PFSH PFSH Medical History (Updated 10/20/23 @ 08:31 by James Romero) Polyhydramnios macrosomia Gestational diabetes Home Medications ?Medication ?Instructions ?Recorded ?Last Taken ?Type PNV 153-FA 400 mcg-om3 35 mg-dha 1 tab PO .hs 03/26/23 10/19/23 20:30 History 25 mg-epa 5 mg-fish oil chew tablet flash glucose scanning reader #1 ea 08/16/23 Unknown Rx (FreeStyle Akiko 2 [place]) flash glucose sensor (FreeStyle #1 ea 08/30/23 Unknown Rx Akiko 2 Sensor kit) insulin NPH isoph U-100 human 100 20 unit (0.2 mL) subcut QAM GDM 60 09/09/23 10/19/23 20:30 Rx unit/mL (3 mL) subcutaneous pen days #12 mL (Humulin N NPH U-100 Insulin KwikPen) insulin syringe-needle U-100 0.5 #100 09/13/23 Unknown Rx mL 29 gauge x 1/2 (BD Insulin Syringe) pen needle, diabetic 31 gauge x #100 ea 09/13/23 Unknown Rx 3/16 (BD Ultra-Fine Mini Pen Needle) Allergy/AdvReac Type Severity Reaction Status Date / Time No Known Allergies Allergy Verified 10/20/23 07:49 Family History Aunt Cancer, Onset Age: 30 Maternal- Ovarian Grandfather CAD (coronary artery disease) Diabetes Aunt Cancer, Onset Age: 38 cervical ca Mother Hyperlipemia Surgical History (Updated 10/20/23 @ 08:31 by James Romero) History of appendectomy History of tonsillectomy [place] teeth extracted Social History adopted: No household members: spouse current occupational status: employed current occupation: [employer] current occupational exposures/hazards: No pets and animals: Yes pets and animals: dog(s) history of recent travel: No sexually active: Yes Smoking Status: Former smoker alcohol intake: never substance use type: does not use well-balanced diet: daily or most days caffeine: Yes Type: coffee Number of servings: 1 eating out: 1-3 times/week during the past year weight has: increased > 10 lbs what type of physical activity do you participate in: aerobics, weight training and additional details: light weights for arms. Does not do legs or heavy weight. frequency: 1-2 times per week duration: 15-30 minutes/day karen/mormon: [employer] seatbelt use: always do you feel safe at home: Yes additional social history: Jasen Bergeron History 1 Elective abortions Hx Para 0 Spontaneous abortions Hx # Term Pregnancies Ectopic pregnancies Hx # Pregnancies Multiple births # of living children Visit Details Expected Delivery Route/Plan Labor Preferences- CB/BF classes: no labor support person: Domenic labor intervention preferences: [] pain management options preferred: epidural cut cord/dad catch: cord : yes PP control planned: discussed discussed possible routes of delivery and associated risks: [] special requests: [] Plans Covid status: [] Flu vaccine: [] Tdap vaccine: given Rhogam: NA LARC form signed: yes Problem list reviewed and updated with the most current plan of care details and appropriate orders placed. Relevant counseling for the gestational age provided. Continue routine care and follow up unless otherwise noted in visit notes/problem list details OB Flowsheet Initial Weight: Not Recorded Date -?-?-?-?--?-?-?-?-?-?-?-?- EGA Weight BP Urine Prot -?-?-?-?-?-?-?-?-?-?-?-?- Glucose FHR FuHt Pres Dilation -?-?-?-?-?-?-?-?-?-?-?-?- Effaced St Visit Note 04/02/23 -?-?-?-?-?-?-?-?-?-?-?-?- 9w 2d 192 lb 8 oz 112/75 -?-?-?-?-?-?-?-?-?-?-?-?- 175 -?-?-?-?-?-?-?-?-?-?-?-?- KW- CRL cons wit h dates. Accepts NIPT and carrier. works with [employer]. Letter for light duty. 04/28/23 -?-?-?-?-?-?-?-?-?-?-?-?- 13w 0d 199 lb 4 oz 113/74 Nega tive -?-?-?-?-?-?-?-?-?-?-?-?- Negative 166 -?-?-?-?-?-?-?-?-?-?-?-?- JV- no lof, vagi nal bleeding, or cramping. complains the most about headaches in . offered phenergan + tylenol and declined. 05/26/23 -?-?-?-?-?-?-?-?-?-?-?-?- 17w 0d 203 lb 112/70 Negative -?-?-?-?-?-?-?-?-?-?-?-?- Negative 149 -?-?-?-?-?-?-?-?-?-?-?-?- MH-No VB, crampi ng. Nausea improved but occurs occa. Enc B6 daily. Declines AFP 06/21/23 -?-?-?-?-?-?-?-?-?-?-?-?- 20w 5d 209 lb 120/80 Negative -?-?-?-?-?-?-?-?-?-?-?-?- Negative 154 0 -?-?-?-?-?-?-?-?-?-?-?-?- MH-Had small marybel unt VB 2 days ago and none today. Feeling discomfort lower abdomen moe left side. RL pain/reassured. No blood in vag vault and cervix closed 07/22/23 -?-?-?-?-?-?-?-?-?-?-?-?- 25w 1d 216 lb 119/82 Negative -?-?-?-?-?-?-?-?-?-?-?-?- Negative 150 25 -?-?-?-?-?-?-?-?-?-?-?-?- SM- no vb lof go od fm no regular ctx 08/16/23 -?-?-?-?-?-?-?-?-?-?-?-?- 28w 5d 224 lb 115/79 Negative -?-?-?-?-?-?-?-?-?-?-?-?- Negative 136 33 -?-?-?-?-?-?-?-?-?-?-?-?- JV- pt got a 179 on glucola and prefers not to do the 3 hour. supplies ordered 08/30/23 -?-?-?-?-?-?-?-?-?-?-?-?- 30w 5d 225 lb 4 oz 118/82 Nega tive -?-?-?-?-?-?-?-?-?-?-?-?- Negative 148 31 -?-?-?-?-?-?-?-?-?-?-?-?- MH-No Vb, LOF. G ood Fm. Using akiko sensor and checking glucose very frequntly. many high reading. Per JV:portal message next 4 days of just FBS and 2 hr pp. Larc done. 09/06/23 -?-?-?-?-?-?-?-?-?-?-?-?- 31w 5d 221 lb 105/73 -?-?-?-?-?-?-?-?-?-?-?-?- 140 -?-?-?-?-?-?-?-?-?-?-?-?- -NST only reac tive. Started metformin 2 days ago. Readings still high. Will review with JENARO, sees her in 3 days. 09/09/23 -?-?-?-?-?-?-?-?-?-?-?-?- 32w 1d 221 lb 111/78 Negative -?-?-?-?-?-?-?-?-?-?-?-?- Negative 130 -?-?-?-?-?-?-?-?-?-?-?-?- JV- all levels a re elevated with metformin and the medication is causing stomach issues. wants to start insulin. starting 10 units R with breakfast, 20 units NPH with breakfast, 15 units R with dinner, and 15 units NPH HS. 09/14/23 -?-?-?-?-?-?-?-?-?-?-?-?- 32w 6d 223 lb 6 oz 114/76 Nega tive -?-?-?-?-?-?-?-?-?-?-?-?- 1000 g/dL 130 -?-?-?-?-?-?-?-?-?-?-?-?- Sm- no vb lof go od fm no regular ctx BS adjusted Sm- no vb lof good fm no reg ular ctx BS reviewed insulin adjusted 09/17/23 -?-?-?-?-?-?-?-?-?-?-?-?- 33w 2d 226 lb 3 oz 110/79 Nega tive -?-?-?-?-?-?-?-?-?-?-?-?- Negative 130 -?-?-?-?-?-?-?-?-?-?-?-?- JV- no lof, vagi nal bleeding, or dec fm. fasting levels are better but 2 hr pp breakfasts are elevated. increase breakfast R to 15. NSt reactive. 09/24/23 -?-?-?-?-?-?-?-?-?-?-?-?- 34w 2d 226 lb 2 oz 113/74 Nega tive -?-?-?-?-?-?-?-?-?-?-?-?- Negative 125 -?-?-?-?-?-?-?-?-?-?-?-?- SM- n ovb lof go od fm no regular ctx 10/01/23 -?-?-?-?-?-?-?-?-?-?-?-?- 35w 2d 228 lb 2 oz 109/70 Nega tive -?-?-?-?-?-?-?-?-?-?-?-?- Negative 125 -?-?-?-?-?-?-?-?-?-?-?-?- KW- no vb/lof/ct x. reactive NST. insulin dose adjusted 10/04/23 -?-?-?-?-?-?-?-?-?-?-?-?- 35w 5d 227 lb Negative -?-?-?-?-?-?-?-?-?-?-?-?- Negative 130 -?-?-?-?-?-?-?-?-?-?-?-?- KW- no vb/lof/ct x. NST reactive. plan 38 week IOL per for uncontrolled GDM. 36 week US ordered today. 10/08/23 -?-?-?-?-?-?-?-?-?-?-?-?- 36w 2d 230 lb 114/76 Negative -?-?-?-?-?-?-?-?-?-?-?-?- 250 g/dL 130 37.5 Cephalic 0 -?-?-?-?-?-?-?-?-?-?-?-?- JV- no lof, vagi nal bleeding, or dec fm nst reactive. GBS collected. glucose log reviewed. 10/13/23 -?-?-?-?-?-?-?-?-?-?-?-?- 37w 0d 231 lb 2 oz 126/64 Nega tive -?-?-?-?-?-?-?-?-?-?-?-?- Negative 130 Cephalic 0 -?-?-?-?-?-?-?-?-?-?-?-?- JV- AC 98th% tod ay. overall 92nd% and weighs 8 lbs. nst reactive. was called for delivery before able to review log will send portal message 10/15/23 -?-?-?-?-?-?-?-?-?-?-?-?- 37w 2d 231 lb 6 oz 117/81 Nega tive -?-?-?-?-?-?-?-?-?-?-?-?- Negative 130 -?-?-?-?-?-?-?-?-?-?-?-?- SM nst today 10/19/23 -?-?-?-?-?-?-?-?-?-?-?-?- 37w 6d 231 lb 118/72 Negative -?-?-?-?-?-?-?-?-?-?-?-?- Negative 130 Cephalic 1.5 -?-?--?-?-?-?-?-?-?-?-?-?- 40 -3 SM- no vb lof good fm no regular ctx SM- no vb lof good fm no reg ular ctx IOL tomorrow 7 am pit and fb ROS Constitutional Constitutional: Denies change in weight, fatigue, fever(s), headache(s), poor appetite or weakness Eyes Eyes: Denies blurry vision, change in vision, seeing flashes or spots in vision ENT HEENT: Denies dizziness, headache(s), loss taste/smell or sore throat Cardiovascular Cardiovascular: Denies chest pain, dizziness, dyspnea, irregular heart rhythm, leg edema, palpitations, rapid heart rate or vomiting Respiratory/Chest Respiratory/Chest: Denies chest tightness, cough, dyspnea or breast pain Gastrointestinal Gastrointestinal: Denies abdominal pain, anorexia, constipation, cramping, diarrhea, hemorrhoids, vomiting or weight changes Genitourinary Genitourinary: Denies dysuria, flank pain, genital lesions, genital pain, urinary frequency or urinary urgency Musculoskeletal Musculoskeletal: Denies back pain, difficulty walking, joint pain, limited range of motion, muscle cramps or numbness Integumentary Integumentary: Denies lesions or unusual bruising Neurologic Neurologic: Denies abnormal movements, abnormal speech, dizziness, numbness, seizure-like activity or syncope Psychiatric Psychiatric: Denies anxiety, behavioral changes, change in appetite, change in libido, cognitive impairment, confusion, depression, difficulty concentrating, hallucinations or suicidal thoughts Endocrine Endocrinology: Denies excessive sweating, polydipsia or polyuria Hematologic/Lymphatic Hematologic/Lymphatic: Denies easy bleeding, easy bruising or lymphadenopathy Allergic/Immunologic Allergic/Immunologic: Denies itchy eyes, lip swelling, seasonal rhinorrhea, rhinitis, throat swelling, tongue swelling, eczemia, wheezing or asthma Vital Signs Vital Signs Vital Signs: 10/20/23 07:29 10/20/23 07:29 10/20/23 07:30 Temperature Temperature Source Pulse Rate 92 93 Respiratory Rate Blood Pressure 121/85 H BP Systolic 121 BP Diastolic 85 Pulse Ox 10/20/23 07:31 10/20/23 07:31 10/20/23 07:31 Temperature Temperature Source Temporal Pulse Rate 95 Respiratory Rate 16 Blood Pressure BP Systolic BP Diastolic Pulse Ox 10/20/23 07:31 10/20/23 07:31 10/20/23 07:31 Temperature 98.3 F Temperature Source Temporal Pulse Rate Respiratory Rate Blood Pressure BP Systolic BP Diastolic Pulse Ox 97 10/20/23 07:31 Temperature Temperature Source Pulse Rate Respiratory Rate Blood Pressure BP Systolic BP Diastolic Pulse Ox 97 Weight Weight: 231 lb Body Mass Index (BMI) 37.3 Physical Exam Const alert, oriented x3, no apparent distress and healthy appearing General Appearance: cooperative; Negative for anxious HEENT normocephalic Face and Sinus: normal facial exam Eyes EOMs intact bilaterally and no scleral icterus General Eye: normal appearance of both eyes Neck full ROM and supple Lymph Lymphatic: no lymphadenopathy noted Chest Chest: abnormal inspection of the chest Resp normal respiratory effort Effort and Inspection: able to speak in complete sentences Cardio regular rate GI soft to palpation and non-tender Inspection: gravid Palpation: soft; Negative for tender external exam normal Narrative: cx is 2/60/-3. a hughes balloon was easily threaded through the cervix, as the bulb was inflated a large amount of blood escaped through the tube (450cc) the bulb was removed and ultrasound was performed showing normal TASIA and fundal/right placenta. FHT was unaffected. Amniotic Fluid: ROM+plus Back/Spine no CVA tenderness Extremity normal to inspection, full ROM and no clubbing, cyanosis or edema General Extremity: Negative for calf tenderness or edema Skin Lesions: no lesions Rashes: no rashes Psych mental status grossly normal Labs Labs Labs: Blood Type A POSITIVE Antibody Screen NEGATIVE Hct 37.3 % (37-47) Hgb 12.8 g/dL (12.0-15.0) Obstetrics Ultrasound Syphilis Total Ab Non-reactive Rubella IgG Antibody Reactive (Nonreactive) Hep Bs Antigen Non-Reactive (Nonreactive) Hepatitis C Antibody Non-Reactive (Nonreactive) Chlamydia DNA (GARY) Negative (Negative) N.gonorrhoeae DNA (GARY) Negative (Negative) HIV 1&2 Antibody Non-Reactive (Nonreactive) Glucose 1 Hr 50 gm 179 mg/dL (70-140) H Assessment & Plan (1) Gestational diabetes mellitus (GDM): QUALIFIERS: Gestational diabetes mellitus control: oral hypoglycemic-controlled Trimester: third trimester Qualified Code(s): O24.415 - Gestational diabetes mellitus in , controlled by oral hypoglycemic drugs COMMENT: 38 week IOL growth 93% -nutrition consult, testing 4x/day: metformin started 09/02 Insulin started 09/08 as did not tolerate metformin. will need twice weekly nsts starting 32 weeks, growth scan needed this week as well as at 36 weeks growth at 37 weeks - 8 lbs (93nd%) AC is 98th% (2) Family history of diabetes mellitus (DM): COMMENT: A1C nl with NOB labs (3) Supervision of high-risk : QUALIFIERS: Trimester: third trimester Qualified Code(s): O09.93 - Supervision of high risk , unspecified, third trimester COMMENT: PRR,, CRIS 11/03/23, girl Wrenley Domenic (4) : QUALIFIERS: Weeks of gestation: 37 weeks Qualified Code(s): Z3A.37 - 37 weeks gestation of COMMENT: GBS neg. nl anatomy, carrier testing, NIPT low risk. Declines AFP PLAN: Plan unable to tolerate hughes due to bleeding from cervix. pt also had a lot of bleeding at IV site and glucose fingerstick per nurse. - collecting coags. plts are normal start pit now. give 3 units of regular insulin now for glucose of 170 this am. start diabetic protocol
[2023-10-20] MEDS: Mag /Aluminum/Simeth WCH UDC 30 ML ORAL.SUSP PO (08:38)
[2023-10-20 09:17] LABS: Bedside Glucose 170 mg/dL (74-106)
[2023-10-20] MEDS: Insulin NPH Human 100 UNITS/ML PEN SC (09:33)
[2023-10-20 09:50] LABS: Syphilis Antibodies Non-reactive
[2023-10-20 10:02] LABS: Prothrombin Time (Protime)PT. 13.6 SECONDS (11.7-14.9)
[2023-10-20 10:03] LABS: Fibrinogen 531 mg/dl (203-444); Partial Thromboplast Time 20.9 Seconds (24.1-36.2)
[2023-10-20] MEDS: Oxytocin 15 Units/NS 250ml 15 UNITS/250 ML IV.SOLN 2 UNITS IV (10:21)
[2023-10-20 10:25] LABS: Bedside Glucose 113 mg/dL (74-106)
[2023-10-20 11:28] LABS: Bedside Glucose 114 mg/dL (74-106)
[2023-10-20] MEDS: 0.9% Saline Lock 10 ML Syringe IV (12:00)
[2023-10-20 12:24] LABS: Bedside Glucose 101 mg/dL (74-106)
[2023-10-20 16:16] LABS: Bedside Glucose 74 mg/dL (74-106)
[2023-10-20] MEDS: Lactated Ringers 1,000 ML 999 ML IV (17:08)
[2023-10-20] MEDS: fentaNYL-bupivacaine (epidural) 100 ML BAG EPIDURAL ×2 (18:18→22:29)
[2023-10-20 20:27] LABS: Bedside Glucose 97 mg/dL (74-106)
[2023-10-20] MEDS: Lactated Ringers 1,000 ML 200 ML IV (21:07)
[2023-10-21] VITALS (29 sets, daily range): BP systolic 102–159; BP diastolic 57–79; PULSE 64–109; RESP 15–18; TEMP 36.3–37.7; O2SAT 97–100
[2023-10-21] MEDS: 0.9% Saline Lock 10 ML Syringe IV ×3 (00:11→12:57)
[2023-10-21 00:55] LABS: Bedside Glucose 63 mg/dL (74-106)
[2023-10-21 00:55] LABS: Bedside Glucose 65 mg/dL (74-106)
[2023-10-21 01:09] LABS: Bedside Glucose 94 mg/dL (74-106)
[2023-10-21] MEDS: Lactated Ringers 1,000 ML 200 ML IV ×2 (01:54→06:53)
[2023-10-21] MEDS: Oxytocin 15 Units/NS 250ml 15 UNITS/250 ML IV.SOLN 25 UNITS IV (03:09)
[2023-10-21] MEDS: fentaNYL-bupivacaine (epidural) 100 ML BAG EPIDURAL ×2 (03:28→09:33)
[2023-10-21 05:33] LABS: Bedside Glucose 85 mg/dL (74-106)
--- NOTE | 2023-10-21 06:22 | PCM.PN.BLA ---
Progress Note patient is comfortable with epidural. Nurses have her in hands/knees x 10 minutes and she is starting to feel pressure. pitocin was increased to 25 mu/min then stopped x 30 minutes and restarted at half. pitocin is now at 14 mu/min current tracing: FHT: 130's Moderate variability reactive no decelerations category I tracing, some interrupted due to position Tocq2 min Contractions A/P: plan to recheck cervix is 10 minutes when out of hands/knees.
[2023-10-21] MEDS: Ondansetron 4 MG/2 ML Vial IV (06:52)
[2023-10-21 07:17] LABS: Bedside Glucose 91 mg/dL (74-106)
[2023-10-21 09:39] LABS: Bedside Glucose 100 mg/dL (74-106)
[2023-10-21 09:39] LABS: Bedside Glucose 91 mg/dL (74-106)
[2023-10-21] MEDS: Oxytocin 10 UNITS/ML Vial IM (10:20)
[2023-10-21] MEDS: Oxytocin 15 Units/NS 250ml 15 UNITS/250 ML IV.SOLN 334 UNITS IV (10:25)
--- NOTE | 2023-10-21 11:07 | OP.PCM_ITS ---
Assessment & Plan (1) : QUALIFIERS: Weeks of gestation: 37 weeks Qualified Code(s): Z3A.37 - 37 weeks gestation of COMMENT: GBS neg. nl anatomy, carrier testing, NIPT low risk. Declines AFP (2) Supervision of high-risk : QUALIFIERS: Trimester: third trimester Qualified Code(s): O09.93 - Supervision of high risk , unspecified, third trimester COMMENT: PRR,, CRIS 11/03/23, girl Crystal Domenic (3) Family history of diabetes mellitus (DM): COMMENT: A1C nl with NOB labs (4) Gestational diabetes mellitus (GDM): QUALIFIERS: Gestational diabetes mellitus control: oral hypoglycemic-controlled Trimester: third trimester Qualified Code(s): O24.415 - Gestational diabetes mellitus in , controlled by oral hypoglycemic drugs COMMENT: 38 week IOL growth 93% -nutrition consult, testing 4x/day: metformin started 09/02 Insulin started 09/08 as did not tolerate metformin. will need twice weekly nsts starting 32 weeks, growth scan needed this week as well as at 36 weeks growth at 37 weeks - 8 lbs (93nd%) AC is 98th% (5) Vaginal delivery: COMMENT: SM IOL GDM girl Wrenley 39 Maternal Data Information CRIS Calculator Estimated Delivery Date Method Current WG Current Estimate 11/03/23 LMP (Certain) 38w 1d Vaginal Delivery Operative Information Date of Procedure: 10/21/23 Pre-Operative Diagnosis: see a/p diagnoses Post-Operative Diagnosis: same Surgery / Procedure Performed: Spontaneous Vaginal Delivery Type of Anesthesia: Epidural Special Medications: TXA Fluids Replaced: crystalloid Findings Description of Procedure: Patient began pushing and delivered the head in the GIOVANNI presentation. The head was delivered atraumatically . The anterior and posterior shoulders delivered without complication followed by the rest of the infant and the infant was placed on the maternal abdomen. Delayed cord clamping was employed for approximately 60 seconds. Cord was clamped and cut and gentle traction was applied to the cord and the placenta delivered spontaneously immediately following it was noted to be intact with three-vessel cord. The perineum and vagina were inspected and noted to have a second degree perineal laceration which was repaired in the usual fashion with 3-0 vicryl rapide. Patient and tolerated delivery well. Amniotic Fluid Description: Clear Placental Delivery Description: Spontaneous Placenta Disposition: [facility] Cord Vessel Description: 3 Vessels Cord Entanglement: None Delayed Cord Clamping: Yes Post Vaginal Delivery Medications Given After Delivery: IV Pitocin Episiotomy Description: None Complication Complications: None Procedures Urinary/Genital 52xxx-[id number]: [id number] Vaginal Delivery [facility]
--- NOTE | 2023-10-21 11:07 | DCINST_ITS ---
Discharge Instructions Diet Discharge Diet: No restrictions Activity Discharge Activity: Return to Normal Activity, May Not Drive (while taking narcotic pain medications.) and May Shower May resume sexual activity in: 4-6 weeks Dressing / Incision Call your doctor if your incision/area has: Continuous Slow Oozing, Sudden Increased Bleeding, Increased Pain/ Swelling, Increased Redness and Foul Smelling Discharge Follow Up Care Please Follow Up With: Luciana Sahu MD When: Call [phone] to make an appointment with your doctor in 6 weeks. If you had elevated blood pressure or 4th degree laceration, you will need to be seen in 2 weeks. Test Results: Test results from this visit will be discussed in further detail at your follow- up appointment, if applicable. Discharge Plan Admission Admit Date/Time: 10/20/23 07:11 Attending Provider: Luciana Sahu Primary Care Provider: Deejay Jain Discharge Orders/Prescriptions Prescriptions: No Action PNV no.[id number] 400 mcg-35 mg- 25 mg-5 mg tablet,chewable 1 tab PO .hs (DME) FreeStyle Akiko 2 Sensor Kit See Rx Instructions .Route Qty: 1 5RF Rx Instructions: As directed Humulin N NPH Insulin KwikPen 100 unit/mL (3 mL) insulin pen 20 unit subcut QAM 60 Days Qty: 12 3RF Rx Instructions: 20 units in am with breakfast and 15 units at bedtime. (DME) FreeStyle Akiko 2 [place] Misc See Rx Instructions .Route Qty: 1 0RF Rx Instructions: As directed (DME) pen needle, diabetic [BD Ultra-Fine Mini Pen Needle] 31 gauge x 3/16 needle See Rx Instructions .Route Qty: 100 2RF Rx Instructions: As directed (DME) insulin syringe-needle U-100 [BD Insulin Syringe] 0.5 mL 29 gauge x 1/2 syringe See Rx Instructions .Route Qty: 100 2RF Rx Instructions: As directed Referrals / Follow Up: Deejay Jain MD [Primary Care Provider] - Disposition Disposition (needs filled in before D/C Order can be placed): Home, Self Care
[2023-10-21] MEDS: Oxytocin 15 Units/NS 250ml 15 UNITS/250 ML IV.SOLN 83 UNITS IV (11:10)
[2023-10-21 11:47] LABS: Bedside Glucose 81 mg/dL (74-106)
[2023-10-21] MEDS: Naproxen 500 MG Tablet PO ×2 (12:56→20:46)
[2023-10-21] MEDS: Hydrocortisone 2.5% Crm 1 APPLIC TOPICAL (14:36)
[2023-10-21] MEDS: Acetaminophen 500 MG Tablet 1000 MG PO (21:09)
[2023-10-22 00:45] VITALS: BP 117/80; PULSE 91; RESP 16; TEMP 36.6; O2SAT 98
[2023-10-22 03:00] VITALS: BP 139/85; PULSE 75; RESP 16; TEMP 36.6; O2SAT 97
[2023-10-22 05:56] LABS: Bedside Glucose 111 mg/dL (74-106)
--- NOTE | 2023-10-22 07:14 | PCM.PN.OB ---
Subjective Subjective Patient doing well without complaints. Tolerating PO. Ambulating and voiding without difficulty. feeding well. Denies chest pain, shortness of breath, calf pain/swelling, fevers, chills, lightheadedness. Objective Data Objective Data Vital Signs: Vital Signs Temp Pulse Resp BP Pulse Ox O2 Del Method 98 F 75 16 139/85 H 97 Room Air 10/22/23 03:00 10/22/23 03:00 10/22/23 03:00 10/22/23 03:00 10/22/23 03:00 10/22/23 03:00 Oxygen Delivery Method Room Air Weight: 231 lb Body Mass Index (BMI) 37.3 Intake & Output: Intake and Output for Last 24 Hours 10/20/23 10/21/23 10/22/23 23:59 23:59 23:59 Intake Total 1792.70 / 1792.70 3366.46 / 3366.46 Output Total 1100 / 1100 3000 / 3000 Balance 692.70 / 692.70 366.46 / 366.46 Lab / Micro Data 10/20/23 07:40 Labs: Laboratory Results - last 24 hr 10/21/23 06:57: POC Glucose 91 10/21/23 08:16: POC Glucose 100 10/21/23 09:19: POC Glucose 91 10/21/23 11:28: POC Glucose 81 10/22/23 05:26: POC Glucose 111 H ROS Constitutional Constitutional: Reports systems reviewed and no addt'l complaints, except as documented Cardiovascular Cardiovascular: Reports systems reviewed and no addt'l complaints, except as documented Respiratory/Chest Respiratory/Chest: Reports systems reviewed and no addt'l complaints, except as documented Gastrointestinal Gastrointestinal: Reports systems reviewed and no addt'l complaints, except as documented Physical Exam Const alert, oriented x3 and no apparent distress HEENT Head and Scalp: atraumatic Resp normal respiratory effort GI soft to palpation and non-tender Bimanual Exam - Vag & Uterus: uterus non-tender Uterus Palpation: uterus fundus firm (below Umbilicus) Assessment & Plan (1) Vaginal delivery: COMMENT: SM IOL GDM girl Wrenley 39 PLAN: Plan s/p PPD # 1 1. routine post delivery care 2. breast feeding- support given 3. rh positive 4. rubella immune
[2023-10-22 08:03] VITALS: BP 119/83; PULSE 80; RESP 16; TEMP 36.3; O2SAT 100
--- NOTE | 2023-10-27 13:38 | NURSING ---
follow up phone call made. Patient did not answer, left message
== END 2023-10-22 13:00 | disposition home or self-care (01) | DRG 807 ==
PROVIDERS: Admitting Provider Obstetrics & Gynecology; PCP Family Medicine; Referring Provider Obstetrics & Gynecology; Visit Provider Obstetrics & Gynecology
DX: O24.424 Gestational diabetes mellitus in childbirth, insulin controlled (principal); Z37.0 Single live birth; O70.1 Second degree perineal laceration during delivery; Z3A.38 38 weeks gestation of pregnancy; Z87.891 Personal history of nicotine dependence
CPT/HCPCS: 59025; 59050; 76815; 82962; 85025; 85384; 85610; 85730; 86780; 86850; 86900; 86901; 99221; J7120; A4216; G0378; J2405

== ENCOUNTER → 2023-12-03 | Outpatient (CLI) | payer OTHER, SELFPAY ==
[2023-12-10 08:24] LABS: HPV Reflexed? NOT INDICATED
== END | disposition home or self-care (01) ==
LOC: LABSPEC 11:41
PROVIDERS: PCP Family Medicine; Referring Provider Advanced Practice Midwife; Visit Provider Advanced Practice Midwife
DX: Z12.4 Encounter for screening for malignant neoplasm of cervix (principal)
CPT/HCPCS: 88175; G0145